=== PATIENT | female | born 1970 | race Caucasian/White ===

== ENCOUNTER 2022-11-22 20:29 | Emergency (ER) | payer OTHER, SELFPAY ==
[2022-11-22 20:38] VITALS: BP 168/66; PULSE 105; RESP 18; TEMP 37.9; O2SAT 99; BMI 33.5
--- NOTE | 2022-11-22 20:52 | ED_ITS ---
HPI - General Adult General Chief complaint: Urogenital Problems, Female Stated complaint: PID Infection Time Seen by Provider: 11/22/22 20:40 History of Present Illness HPI narrative: This 52-year-old female comes in reporting lower abdominal pain that began yesterday. She states that she had symptoms like this before almost 3 years ago when she was admitted to the hospital and had to have an abscess drained in her lower abdomen. She does not report any fever or dysuria symptoms. She states that she came in much sooner this time and feels much better than what she went through V4 but is concerned that something is recurrent. Related Data Home Medications Medication Instructions Recorded Confirmed buspirone 15 mg tablet 15 mg PO 3XD 11/22/22 11/22/22 escitalopram oxalate 20 mg tablet 20 mg PO DAILY 11/22/22 11/22/22 levothyroxine 88 mcg tablet 88 mcg PO DAILY 11/22/22 11/22/22 metformin 500 mg tablet,extended 500 mg PO QPM 11/22/22 11/22/22 release 24 hr pregabalin 150 mg capsule 150 mg PO BID 11/22/22 11/22/22 rosuvastatin 5 mg tablet 5 mg PO DAILY 11/22/22 11/22/22 Previous Rx's Medication Instructions Recorded levofloxacin 500 mg tablet 500 mg PO DAILY 10 days #10 tabs 11/22/22 Allergies Allergy/AdvReac Type Severity Reaction Status Date / Time Sulfa (Sulfonamide Allergy Mild Hives Verified 11/22/22 20:42 Antibiotics) codeine AdvReac Mild Nausea/Vomi Verified 11/22/22 20:42 ting Review of Systems Status of ROS: Reports: 10 or more systems reviewed and unremarkable except as noted in History and below Narrative: Constitutional: No fevers, no weight gain or loss. Generalized malaise. Eyes: No discharge. No vision changes. HENT: No congestion, no sore throat, no ear pain. Cardiovascular: No chest pain, no palpitations. Respiratory: No shortness of breath, no wheezes, no cough. Gastrointestinal: No vomiting, no diarrhea. Lower abdominal pain. Genitourinary: No dysuria, no hematuria. Musculoskeletal: Normal range of motion. Skin: No rashes, no pruritis. Neurological: No dizziness, weakness, sensory change, speech change. Endo/Heme/Allergies: No bruising or bleeding. No polydipsia. Pysch: no suicidality, no anxiety, no insomnia. All other systems reviewed and are negative. Exam Narrative: Exam Narrative: Constitutional: Well-developed, well-nourished, no acute distress. HEENT: Normocephalic, atraumatic. Neck: Normal range of motion. Nontender. Supple. Heart: Regular. No murmurs. Normal rate. Intact distal pulses. Lungs: Clear to auscultation. No chest discomfort. No wheezes, rhonchi, or rales. Abdomen: Normal bowel sounds. Tenderness in the lower abdomen with mild rebound tenderness. Genitalia: Deferred. Back: No midline tenderness. Normal range of motion. Extremities: Normal range of motion. No injury. Skin: Intact. No rash. Warm. No erythema or pallor. Neurologic: No altered sensation. No weakness. Alert and oriented. Psychiatric: No suicidality. No anxiety or depression. No insomnia. Nursing notes and vitals signs are reviewed. Const: Vital Signs, click to edit/add: Vital Signs - 24 hr 11/22/22 20:38 Temperature 100.2 F H Pulse Rate [Right Pulse Oximeter] 105 H Respiratory Rate 18 Blood Pressure [Ri ght Upper Arm] 168/66 H Pulse Oximetry 99 Oxygen Delivery Me thod Room Air Course Vital Signs Vital signs: Initial Vital Signs Temperature 100.2 F H 11/22/22 20:38 Temperature Source Oral 11/22/22 20:38 Pulse Rate 105 H 11/22/22 20:38 Respiratory Rate 18 11/22/22 20:38 Blood Pressure 168/66 H 11/22/22 20:38 Blood Pressure Mean 100 11/22/22 20:38 Blood Pressure Position Sitting 11/22/22 20:38 Pulse Oximetry 99 11/22/22 20:38 Oxygen Delivery Method Room Air 11/22/22 20:38 Vital Signs Temperature 100.2 F H 11/22/22 20:38 Pulse Rate 105 H 11/22/22 20:38 Respiratory Rate 18 11/22/22 20:38 Blood Pressure 168/66 H 11/22/22 20:38 Pulse Oximetry 99 11/22/22 20:38 Oxygen Delivery Method Room Air 11/22/22 20:38 Temperature 100.2 F H 11/22/22 20:38 Pulse Rate 105 H 11/22/22 20:38 Respiratory Rate 18 11/22/22 20:38 Blood Pressure 168/66 H 11/22/22 20:38 Pulse Oximetry 99 11/22/22 20:38 Oxygen Delivery Method Room Air 11/22/22 20:38 Medical Decision Making MDM Narrative Medical decision making narrative: This patient comes in with lower abdominal pain. She has slight tachycardia and has a borderline fever. I recommended IV, labs, and CT imaging to rule out or figure out important causes of these symptoms. The patient began to be tearful and stated that she did not have good insurance and was very concerned about the expense of this kind of workup. She states that she felt much worse in her previous episode of abdominal pain 3 years ago and put off things for several days before coming in. She was hoping to receive an antibiotic. I did lay out some options and reiterated my a preference to do a thorough workup. The pa madelin declined this but did receive an IM injection of Rocephin and an oral dose of Levaquin. Labs are acquired. The patient knows to return if symptoms are worsening. If lab results are indicating a change of plans the patient will comply Discharge Plan Discharge Clinical Impression: Abdominal pain Patient Disposition: Home w/ Parent or Adult Condition: Unchanged Additional Instructions: Take medication as prescribed. Follow up with MD. Return if symptoms are not improving or worsening. Prescriptions: New levofloxacin 500 mg tablet 500 mg PO DAILY 10 Days Qty: 10 0RF No Action rosuvastatin 5 mg tablet 5 mg PO DAILY buspirone 15 mg tablet 15 mg PO 3XD levothyroxine 88 mcg tablet 88 mcg PO DAILY metformin 500 mg tablet extended release 24 hr 500 mg PO QPM escitalopram oxalate 20 mg tablet 20 mg PO DAILY pregabalin 150 mg capsule 150 mg PO BID Follow Up/Referrals: Kamala Soto DO [Primary Care Provider] - Stand Alone Forms: [employer] Info Instructions
[2022-11-22 21:14] LABS: Lactate* 1.5 mmol/L (0.5-1.9)
[2022-11-22 21:17] LABS: Basophils Absolute Auto 0.02 K/uL (0.00-0.30); Basophils Percent Auto 0.2 % (0.0-3.0); Eosinophils Absolute Auto 0.01 K/uL (0.00-0.50); Eosinophils Percent Auto 0.1 % (0.0-7.0); Hematocrit 35.9 % (33.0-51.0); Hemoglobin* 11.8 gm/dL (12.0-16.0); Immature Granulocytes Abs Auto 0.01 K/uL (0.00-0.30); Immature Granulocytes Pct Auto 0.1 %; Lymphocytes Percent Auto 7.9 % (20-44); Mean Corpuscular HGB Conc 33 gm/dL (32-36); Mean Corpuscular Hemoglobin 30 pg (26-34); Mean Corpuscular Volume 90 fL (80-100); Monocytes Percent Auto 2.3 % (0.0-11.0); Neutrophils Percent Auto 89.4 % (42.0-72.0); Platelet Count* 195 K/uL (140-440); RDW Coefficient of Variation % 13.4 % (11.5-15.5); Red Blood Count 3.97 m/uL (4.00-5.20); White Blood Count* 9.22 K/uL (4.50-11.00)
[2022-11-22] MEDS: LIDOCAINE 1% 5 ml (pf) 5 ML VIAL 2.1 ML IM (21:22)
[2022-11-22] MEDS: cefTRIAXone 1 GM VIAL IM (21:22)
[2022-11-22] MEDS: levoFLOXacin 500 MG TABLET PO (21:22)
[2022-11-22 21:24] LABS: Slide Review Reflex No
[2022-11-22 21:32] LABS: Chloride* 101 mmol/L (96-114); Sodium* 133 mmol/L (135-149)
[2022-11-22 21:33] LABS: Potassium* 3.5 mmol/L (3.6-5.1)
[2022-11-22 21:35] LABS: Carbon Dioxide* 24 mmol/L (20-32); Creatinine* 0.7 mg/dL (0.5-1.5); Est. Creatinine Clearance* 80.26; Estimated Glomerular Filt Rate 103 ml/min
[2022-11-22 21:36] LABS: Blood Urea Nitrogen* 6 mg/dL (7-30); Calcium* 8.6 mg/dL (8.4-10.6); Glucose* 196 mg/dL (60-115)
== END 2022-11-22 21:32 | disposition home or self-care (01) ==
LOC: ED 21:13
PROVIDERS: Emergency Provider Emergency Medicine Emergency Medical Services; PCP Family Medicine
DX: R10.9 Unspecified abdominal pain (principal)
CPT/HCPCS: 36415; 80048; 83605; 85025; 87040; 87186; 96372; 99284; A9270; J0696

== ENCOUNTER 2022-11-24 01:28 | Inpatient (IN) | payer OTHER, SELFPAY ==
[2022-11-24] VITALS (20 sets, daily range): BP systolic 96–126; BP diastolic 57–75; PULSE 73–102; RESP 12–20; TEMP 37.1–39.2; O2SAT 93–98; BMI 33.5; BMI 33.1
--- NOTE | 2022-11-24 02:06 | CRLHL7_ITS ---
For Patients: As a result of the Cures Act, medical imaging exams and procedure reports are released immediately into your electronic medical record. You may view this report before your referring provider. If you have questions, please contact your health care provider. INDICATION: Streptococcal bacteremia with dental caries TECHNIQUE: CT lower face without contrast. COMPARISON: None FINDINGS: Visualized osseous structures demonstrate no acute fracture, subluxation, or bony erosion. No periapical lucency. No soft tissue abscess or gas. Visualized paranasal sinuses are normally aerated. No adenopathy. IMPRESSION: No sign of acute abnormality. Please note that all CT scans at this facility use dose modulation, iterative reconstruction, and/or weight-based dosing when appropriate to reduce radiation dose to as low as reasonably achievable. Dictated by Cherise Pierre MD @ 11/24/2022 3:09:23 AM (Electronically Signed)
--- NOTE | 2022-11-24 02:06 | CRLHL7_ITS ---
For Patients: As a result of the Cures Act, medical imaging exams and procedure reports are released immediately into your electronic medical record. You may view this report before your referring provider. If you have questions, please contact your health care provider. INDICATION: Bacteremia, history of right adnexal abscess TECHNIQUE: CT abdomen and pelvis acquired with 95 cc Isovue 370 IV contrast. COMPARISON: April 11, 2020 FINDINGS: Lower chest: Unremarkable. Liver: Unremarkable. Spleen: Unremarkable. Pancreas: Unremarkable. Gallbladder and bile ducts: Unremarkable. Adrenal glands: Unremarkable. Kidneys: Mild right hydronephrosis and hydroureter. No collecting system stone. GI tract: Unremarkable. Appendix is normal. Vascular structures: Unremarkable. Lymph nodes: Unremarkable. Miscellaneous: Unremarkable. No free air or significant free fluid. Pelvic Organs: Nabothian cysts on the uterine cervix. Multiloculated mass in the right adnexa measuring 4.3 x 5.6 x 6.6 cm. This mass has a partially tubular configuration. Minimal surrounding fat stranding. Physiologic cysts on the left ovary. Bones: Unremarkable for age. IMPRESSION: Greater than 6 cm multiloculated mass in the right adnexa. This may represent a tubo-ovarian abscess. The appearance is similar compared to April 11, 2020. Recommend pelvic ultrasound for further evaluation. Mild right hydronephrosis and hydroureter likely due to extrinsic compression from the mass in the right adnexa. Please note that all CT scans at this facility use dose modulation, iterative reconstruction, and/or weight-based dosing when appropriate to reduce radiation dose to as low as reasonably achievable. Dictated by Cherise Pierre MD @ 11/24/2022 3:17:07 AM (Electronically Signed)
--- NOTE | 2022-11-24 02:09 | CRLHL7_ITS ---
For Patients: As a result of the Cures Act, medical imaging exams and procedure reports are released immediately into your electronic medical record. You may view this report before your referring provider. If you have questions, please contact your health care provider. INDICATION: Bacteremia TECHNIQUE: Chest 2 views. COMPARISON: December 29, 2019 FINDINGS: Cardiovascular and mediastinum: Heart size and vasculature are normal in caliber and appearance. Mediastinum is within normal limits. Lungs and pleural spaces: Lungs are clear. No sign of infiltrate or mass. No sign of pleural effusion. No pneumothorax. Bones and soft tissues: No significant findings. IMPRESSION: No sign of acute disease. Dictated by Cherise Pierre MD @ 11/24/2022 3:10:05 AM (Electronically Signed)
--- NOTE | 2022-11-24 02:12 | ED_ITS ---
HPI - General Adult General Chief complaint: Fever Stated complaint: Fever Time Seen by Provider: 11/24/22 01:31 Source: patient Mode of arrival: ambulatory Limitations: no limitations History of Present Illness HPI narrative: 52-year-old female presents to the emergency department after feeling more ill. Visit 2 days ago presenting for nonspecific abdominal symptoms and low-grade fevers. She ultimately had blood work which was overall reassuring, blood cultures were drawn and these came back positive for Gram-positive cocci in change, likely strep yesterday. She was called yesterday morning and advised to come back in for evaluation. She had been given a shot of Rocephin and was started on levofloxacin. She elected to see where things went, concerned about the cost of care with limited insurance right now. She says that she has been feeling more ill, started to have body aches, chills and fever. She knows that she is not as ill as she was when she had full-blown sepsis 3 years ago. She had bacteremia at that time and it was found to be secondary to a tubo-ovarian abscess which was drained up at [facility] by what sounds like Interventional Radiology. I do not have full access to those notes but I can see some records indicating the treatment from our facility. She does not have any localizing symptoms of infection, there is no dysuria, no productive cough, no sore throat or open skin wounds. She does not take any immunosuppressants or anticoagulants. She has no history of heart disease. On specific questioning, she does report some dental caries from grinding her teeth. She admits that these have not been completely addressed. No red or swollen joints, no arthralgias. She has been taking the level floxacillin as prescribed. Past medical history is notable for prior sepsis from tubo-ovarian abscess, hypothyroidism, type 2 diabetes, well controlled. Hyperlipidemia and anxiety disorder. Her home medications are listed in the EMR and I do confirm that these are correct with the exception of the BuSpar dose she says that she takes twice a day rather than 3 times daily as listed. She states that she is a nonsmoker, no recent pertinent travel. ROS is notable for the generalized, abdominal symptoms as described above. ED note from 11/22 reviewed in its entirety as well as hospital details from April 2020. Related Data Home Medications Medication Instructions Recorded Confirmed buspirone 15 mg tablet 15 mg PO 3XD 11/22/22 11/22/22 escitalopram oxalate 20 mg tablet 20 mg PO DAILY 11/22/22 11/22/22 levothyroxine 88 mcg tablet 88 mcg PO DAILY 11/22/22 11/22/22 metformin 500 mg tablet,extended 500 mg PO QPM 11/22/22 11/22/22 release 24 hr pregabalin 150 mg capsule 150 mg PO BID 11/22/22 11/22/22 rosuvastatin 5 mg tablet 5 mg PO DAILY 11/22/22 11/22/22 Previous Rx's Medication Instructions Recorded levofloxacin 500 mg tablet 500 mg PO DAILY 10 days #10 tabs 11/22/22 Allergies Allergy/AdvReac Type Severity Reaction Status Date / Time No Known Drug Allergies Allergy Verified 11/24/22 02:46 Exam Const: Vital Signs, click to edit/add: Vital Signs - 24 hr 11/24/22 01:36 11/24/22 01:43 11/24/22 02:35 Temperature 102.5 F H Pulse Rate 95 Pulse Rate [Pulse Oximeter] 102 H Respiratory Rate 20 Blood Pressure Blood Pressure [Ri ght Upper Arm] 119/75 Pulse Oximetry 93 94 Oxygen Delivery Me thod Room Air 11/24/22 02:45 11/24/22 02:46 11/24/22 02:47 Temperature Pulse Rate 90 89 87 Pulse Rate [Pulse Oximeter] Respiratory Rate Blood Pressure 112/69 Blood Pressure [Ri ght Upper Arm] Pulse Oximetry 94 95 95 Oxygen Delivery Me thod 11/24/22 03:00 11/24/22 03:01 11/24/22 03:15 Temperature Pulse Rate 79 79 81 Pulse Rate [Pulse Oximeter] Respiratory Rate Blood Pressure 104/57 L Blood Pressure [Ri ght Upper Arm] Pulse Oximetry 96 96 95 Oxygen Delivery Me thod 11/24/22 03:16 11/24/22 03:30 11/24/22 03:31 Temperature Pulse Rate 78 93 82 Pulse Rate [Pulse Oximeter] Respiratory Rate Blood Pressure 112/59 L 114/57 L Blood Pressure [Ri ght Upper Arm] Pulse Oximetry 95 95 94 Oxygen Delivery Me thod 11/24/22 03:45 11/24/22 03:46 Temperature Pulse Rate 75 75 Pulse Rate [Pulse Oximeter] Respiratory Rate Blood Pressure 107/60 Blood Pressure [Ri ght Upper Arm] Pulse Oximetry 93 94 Oxygen Delivery Me thod Documenting provider has reviewed patient's vital signs: yes Common normals: no apparent distress General appearance: cooperative, comfortable and well kempt Other: Excellent historian. Cooperative with exam HENMT: Common normals: normocephalic and head/scalp atraumatic Head and scalp: normocephalic and atraumatic Face and sinus: normal facial exam Other: Dental caries, especially in back teeth. No obvious signs of swollen gums or abscess. Eye: Common normals: EOMs intact bilaterally and conjunctivae normal General eye: normal appearance of both eyes Conjunctiva: conjunctiva(e) normal Neck & C-Spine: Common normals: full ROM and no lymphadenopathy Resp: Common normals: normal respiratory effort, no retractions, no use of accessory muscles and clear to auscultation bilaterally Effort & inspection: able to speak in complete sentences Auscultation: clear to auscultation bilaterally Cardio: Common normals: regular rate, regular rhythm, S1 normal heart sound, S2 normal heart sound and no murmurs Rate: regular rate Rhythm: regular rhythm Heart sounds: S1 normal and S2 normal GI: Common normals: Normal to inspection, nondistended, normoactive bowel sounds present, soft to palpation, non-tender, no hepatosplenomegaly and no masses Palpation: soft and no hepatosplenomegaly Extremity: Common normals: normal to inspection, full ROM, normal capillary refill and no pedal edema Neuro: Speech: speech normal Gait (neuro): normal gait Motor exam: strength 5/5 throughout, no tremor noted and no movement abnormalities noted Psych: Appearance: well kempt Attitude: engaged Activity/motor behavior: appropriate eye contact Insight: insight good Judgement: judgment good Skin: Common normals: no rashes or lesions noted General skin exam: no rashes or lesions noted Course Course Hospital Course: To positive blood cultures, suspicious for strep bacteria. Counseled patient that without a skin wound, we should consider dental source. She was having some vague abdominal symptoms a couple of days ago, I would recommend that we re-evaluate the pelvic organs to look for tubo-ovarian abscess. We will repeat the blood cultures, hopefully these will be negative today as she has already started a single dose of Rocephin and level floxacillin. I do recommend that she be admitted for IV antibiotics and further workup. Await CT findings. Basic blood work will also be obtained. Will restart Rocephin while we await findings once blood cultures have been drawn. Reevaluation(s) Time of Reevaluation #1: 03:37 Reevaluation #1: Reviewed all findings with patient. Spoke with Gynecology, Dr. Hall. She recommends NPO, hospitalization, IV antibiotics. May require hysterectomy. Patient will consult in the morning and give further recommendations. I have already given Rocephin which will have good Gram-positive and Gram-negative activity, will add doxycycline. P.r.n. Tylenol ordered for fever. Hospitalist will order maintenance fluids. Hospitalist accepts admission with Dr. Hall consult thing. All questions answered from patient prior to transfer to the medical floor. Vital Signs Vital signs: Initial Vital Signs Temperature Source Temporal Artery Scan 11/24/22 01:36 Pulse Rate 102 H 11/24/22 01:36 Respiratory Rate 20 11/24/22 01:36 Blood Pressure 119/75 11/24/22 01:36 Blood Pressure Mean 89 11/24/22 01:36 Blood Pressure Position Sitting 11/24/22 01:36 Pulse Oximetry 93 11/24/22 01:36 Oxygen Delivery Method Room Air 11/24/22 01:36 Vital Signs Pulse Rate 102 H 11/24/22 01:36 Respiratory Rate 20 11/24/22 01:36 Blood Pressure 119/75 11/24/22 01:36 Pulse Oximetry 93 11/24/22 01:36 Oxygen Delivery Method Room Air 11/24/22 01:36 Temperature 102.5 F H 11/24/22 01:43 Pulse Rate 75 11/24/22 03:46 Respiratory Rate 20 11/24/22 01:36 Blood Pressure 107/60 11/24/22 03:46 Pulse Oximetry 94 11/24/22 03:46 Oxygen Delivery Method Room Air 11/24/22 01:36 Medical Decision Making MDM Narrative Medical decision making narrative: Differential diagnosis including tubo-ovarian abscess, diverticulitis, dental a bscess, pneumonia, sepsis, cellulitis, skin wound, among others. Dental verses pelvic etiology most likely based on history, will start with this workup. CT showing tubo-ovarian abscess, consult with Gynecology, IV antibiotics started for bacteremia. Admitted to hospital. Lab Data Lab results reviewed: Yes I reviewed the patient's lab results Lab results narrative: Markedly elevated CRP. Labs: Lab Results 11/24/22 11/24/22 Range/Units 01:54 02:20 WBC 7.36 (4.50-11.00) K/uL RBC 3.78 L (4.00-5.20) m/uL Hgb 11.5 L (12.0-16.0) gm/dL Hct 34.3 (33.0-51.0) % MCV 91 (80-100) fL MCH 30 (26-34) pg MCHC 34 (32-36) gm/dL RDW Coeff of Sanjeev 13.5 (11.5-15.5) % Plt Count 186 (140-440) K/uL Neut % (Auto) 82.0 H (42.0-72.0) % Lymph % (Auto) 9.5 L (20-44) % Charles % (Auto) 6.8 (0.0-11.0) % Eos % (Auto) 0.4 (0.0-7.0) % Baso % (Auto) 0.3 (0.0-3.0) % Neut # (Auto) 6.00 (1.7-7.0) K/uL Lymph # (Auto) 0.70 L (0.90-2.90) K/uL Charles # (Auto) 0.50 (0.00-0.90) K/UL Eos # (Auto) 0.03 (0.00-0.50) K/uL Baso # (Auto) 0.02 (0.00-0.30) K/uL Sodium 134 L (135-149) mmol/L Potassium 3.5 L (3.6-5.1) mmol/L Chloride 101 (96-114) mmol/L Carbon Dioxide 26 (20-32) mmol/L BUN 8 (7-30) mg/dL Creatinine 0.8 (0.5-1.5) mg/dL Estimated Creat Clear 70.23 Estimated GFR 88 ml/min Glucose 132 H (60-115) mg/dL Calcium 9.0 (8.4-10.6) mg/dL Total Bilirubin 1.1 (0.1-1.5) mg/dL AST 51 H (12-35) U/L ALT 53 H (4-35) U/L Alkaline Phosphatase 118 (40-150) U/L C-Reactive Protein 18.4 H (0.5-1.0) mg/dL Total Protein 6.9 (6.0-8.3) g/dL Albumin 3.9 (3.3-5.0) g/dL Urine Color Yellow (Yellow) Urine Appearance Clear (Clear) Urine pH 7.0 (5.0-8.5) Ur Specific [place] <= 1.005 (1.000-1.030) Urine Protein Negative (Negative) Urine Glucose (UA) Negative (Negative) Urine Ketones Negative (Negative) Urine Blood Trace-intact A (Negative) Urine Nitrite Negative (Negative) Urine Bilirubin Negative (Negative) Urine Urobilinogen 0.2 (0.2-1.0) Ur Leukocyte Esterase Negative (Negative) Urine RBC 0-2 (0-2) Urine WBC 0-2 (0-5) Ur Squamous Epith Cells Few (None-Few) Urine Bacteria None (None) Imaging Data CT scan - pelvis: Attestation: I have reviewed the pertinent imaging results. My impression: Complex mass, right pelvis Radiologist's impression: IMPRESSION: Greater than 6 cm multiloculated mass in the right adnexa. This may represent a tubo-ovarian abscess. The appearance is similar compared to April 11, 2020. Recommend pelvic ultrasound for further evaluation. Mild right hydronephrosis and hydroureter likely due to extrinsic compression from the mass in the right adnexa. Chest x-ray: Attestation: I have reviewed the pertinent imaging results. My impression: Normal Radiologist's impression: IMPRESSION: No sign of acute disease. CT facial: Attestation: I have reviewed the pertinent imaging results. My impression: Normal Radiologist's impression: IMPRESSION: No sign of acute abnormality. Discharge Plan Discharge Clinical Impression: Right tubo-ovarian abscess, Bacteremia Patient Disposition: Admitted As Inpatient
[2022-11-24 02:18] LABS: Appearance Urine Clear (Clear); Bilirubin Urine Negative (Negative); Blood Urine Trace-intact (Negative); Color Urine Yellow (Yellow); Glucose Urine Negative (Negative); Ketones Urine Negative (Negative); Leukocyte Esterase Urine Negative (Negative); Nitrite Urine Negative (Negative); Protein Urine Negative (Negative); Specific Gravity Urine <= 1.005 (1.000-1.030); Urobilinogen Urine 0.2 (0.2-1.0)
[2022-11-24] MEDS: cefTRIAXone 1 GM in 0.9 % SODIUM CHLORIDE Mini-bag 100 ML IVPB (02:42)
[2022-11-24 02:44] LABS: Basophils Absolute Auto 0.02 K/uL (0.00-0.30); Basophils Percent Auto 0.3 % (0.0-3.0); Eosinophils Absolute Auto 0.03 K/uL (0.00-0.50); Eosinophils Percent Auto 0.4 % (0.0-7.0); Hematocrit 34.3 % (33.0-51.0); Hemoglobin* 11.5 gm/dL (12.0-16.0); Immature Granulocytes Abs Auto 0.07 K/uL (0.00-0.30); Lymphocytes Percent Auto 9.5 % (20-44); Mean Corpuscular HGB Conc 34 gm/dL (32-36); Mean Corpuscular Hemoglobin 30 pg (26-34); Mean Corpuscular Volume 91 fL (80-100); Monocytes Percent Auto 6.8 % (0.0-11.0); Platelet Count* 186 K/uL (140-440); RDW Coefficient of Variation % 13.5 % (11.5-15.5); Red Blood Count 3.78 m/uL (4.00-5.20); White Blood Count* 7.36 K/uL (4.50-11.00)
[2022-11-24 02:50] LABS: RBC Urine 0-2 (0-2); Squamous Epithelial Cell Urine Few (None-Few); WBC Urine 0-2 (0-5)
[2022-11-24 02:50] LABS: Slide Review Reflex No
[2022-11-24 02:56] LABS: Albumin* 3.9 g/dL (3.3-5.0); Chloride* 101 mmol/L (96-114); Sodium* 134 mmol/L (135-149)
[2022-11-24 02:57] LABS: Potassium* 3.5 mmol/L (3.6-5.1)
[2022-11-24 02:59] LABS: Alanine Aminotransferase* 53 U/L (4-35); Alkaline Phosphatase* 118 U/L (40-150); Aspartate Amino Transferase* 51 U/L (12-35); Bilirubin Total* 1.1 mg/dL (0.1-1.5); Blood Urea Nitrogen* 8 mg/dL (7-30); Carbon Dioxide* 26 mmol/L (20-32); Creatinine* 0.8 mg/dL (0.5-1.5); Est. Creatinine Clearance* 70.23; Estimated Glomerular Filt Rate 88 ml/min; Glucose* 132 mg/dL (60-115); Total Protein* 6.9 g/dL (6.0-8.3)
[2022-11-24 03:13] LABS: C Reactive Protein* 18.4 mg/dL (0.5-1.0)
--- NOTE | 2022-11-24 04:09 | ED.NURSE ---
nurse to nurse report given to Hiral, Patient will be going to room 260.
[2022-11-24] MEDS: DOXYCYCLINE HYCLATE 100 MG in 0.9 % SODIUM CHLORIDE Mini-bag 100 ML IVPB ×2 (04:16→17:50)
--- NOTE | 2022-11-24 05:03 | PM.IMCN1 ---
Date of Consult Consult date: 11/24/22 Primary Care Provider: Kamala Soto DO Consult Narrative Narrative: Wesly Suazo Hospitalist CONSULTATION NOTE: eHospitalist was contacted by Dr. Costa with request of consultation for admission: Reason for consult: Bacteremia with tubo-ovarian abscess HPI: This is a 52-year-old female who presents to the hospital due to recurrent fevers. Patient seen in the ER couple days ago for evaluation due to feeling like she did not about 3 years ago when she had a tubo-ovarian abscess that needed to be drained eventually. She was notified of blood cultures being positive today and did come back to the ER to be evaluated again secondary to recurrent fevers and wanting to be ahead of the game compared to her previous experience it sounds like. She tells me she had a IR procedure to have the abscess drained in the past. I am unsure if she had bacteremia at that time however. Patient's laboratory testing today is essentially unremarkable. CT of the abdomen shows a persistent multiloculated mass in the right adnexa. This could represent a tubo-ovarian abscess. Patient's case was discussed with the on-call OB in the ER. Home Medications: Reviewed in EMR. Awaiting full reconciliation Pertinent Medical History: Diabetes mellitus, hypothyroidism, anxiety, hyperlipidemia, depression, fibromyalgia Past surgical History: Pertinent Social History: Non-smoker. Very rare alcohol use Family Hx: Mom and sister with hypothyroidism, dad with hyperlipidemia Exam (performed via interactive video with assistance of bedside nurse): Temperature 99.1, pulse 86, respirations 16, blood pressure 112/67, O2 sat 95% on room air General: Alert, cooperative, no acute distress HEENT: EOM intact, head is normocephalic and atraumatic Lungs: Clear to auscultation bilaterally without crackle or wheeze CV: Regular rate and rhythm without loud murmur rub or gallop Ext: No gross deformities of the extremities noted Skin: No rashes, bruises or lesions appreciated on gross visualization of exposed skin Neuro: Alert, oriented x 3. CN III -VII, XI, XII grossly intact, moves all extremities without any significant focal deficit appreciated Assessment: Strep bacteremia unspecified Right adnexal mass with possible tubo-ovarian abscess Diabetes mellitus Hyperlipidemia Anxiety Hypothyroidism Depression Plan: -Treat for possible intra-abdominal infection/abscess with ceftriaxone and Flagyl. Doxy could be continued if desired -Question whether these are 2 unrelated things and the strep bacteremia could be separate from a persistent right adnexal mass versus abscess -Suggest OB consult to help delineate this with ultrasound potentially today -With strep bacteremia, likely would recommend an echocardiogram for complete evaluation and source control -Resume home medications once reconciled Thank you for including Wesly Suazo Hospitalist in the patients care. This service is available for further assistance as requested by your care team by calling [phone]. Meds Home Medications and Allergies Home Medications Medication Instructions Recorded Confirmed Type buspirone 15 mg tablet 15 mg PO 3XD 11/22/22 11/22/22 History escitalopram oxalate 20 mg tablet 20 mg PO DAILY 11/22/22 11/22/22 History levothyroxine 88 mcg tablet 88 mcg PO DAILY 11/22/22 11/22/22 History metformin 500 mg tablet,extended 500 mg PO QPM 11/22/22 11/22/22 History release 24 hr pregabalin 150 mg capsule 150 mg PO BID 11/22/22 11/22/22 History rosuvastatin 5 mg tablet 5 mg PO DAILY 11/22/22 11/22/22 History Allergies Allergy/AdvReac Type Severity Reaction Status Date / Time No Known Drug Allergies Allergy Verified 11/24/22 02:46 Exam Const: Vital Signs, click to edit/add: Vital Signs - 24 hr 11/24/22 01:36 11/24/22 01:43 11/24/22 02:35 Temperature 102.5 F H Pulse Rate 95 Pulse Rate [Pulse Oximeter] 102 H Respiratory Rate 20 Blood Pressure Blood Pressure [Le ft Arm] Blood Pressure [Ri ght Upper Arm] 119/75 Pulse Oximetry 93 94 Oxygen Delivery Me thod Room Air 11/24/22 02:45 11/24/22 02:46 11/24/22 02:47 Temperature Pulse Rate 90 89 87 Pulse Rate [Pulse Oximeter] Respiratory Rate Blood Pressure 112/69 Blood Pressure [Le ft Arm] Blood Pressure [Ri ght Upper Arm] Pulse Oximetry 94 95 95 Oxygen Delivery Me thod 11/24/22 03:00 11/24/22 03:01 11/24/22 03:15 Temperature Pulse Rate 79 79 81 Pulse Rate [Pulse Oximeter] Respiratory Rate Blood Pressure 104/57 L Blood Pressure [Le ft Arm] Blood Pressure [Ri ght Upper Arm] Pulse Oximetry 96 96 95 Oxygen Delivery Me thod 11/24/22 03:16 11/24/22 03:30 11/24/22 03:31 Temperature Pulse Rate 78 93 82 Pulse Rate [Pulse Oximeter] Respiratory Rate Blood Pressure 112/59 L 114/57 L Blood Pressure [Le ft Arm] Blood Pressure [Ri ght Upper Arm] Pulse Oximetry 95 95 94 Oxygen Delivery Me thod 11/24/22 03:45 11/24/22 03:46 11/24/22 04:44 Temperature 99.1 F Pulse Rate 75 75 Pulse Rate [Pulse Oximeter] 86 Respiratory Rate 16 Blood Pressure 107/60 Blood Pressure [Le ft Arm] 112/67 Blood Pressure [Ri ght Upper Arm] Pulse Oximetry 93 94 95 Oxygen Delivery Me thod Room Air Labs Labs: Short CBC 11/24/22 Range/Units 02:20 WBC 7.36 (4.50-11.00) K/uL Hgb 11.5 L (12.0-16.0) gm/dL Hct 34.3 (33.0-51.0) % Plt Count 186 (140-440) K/uL BMP 11/24/22 02:20 Sodium 134 L Potassium 3.5 L Chloride 101 Carbon Dioxide 26 BUN 8 Creatinine 0.8 Glucose 132 H Calcium 9.0 Liver Function 11/24/22 Range/Units 02:20 Total Bilirubin 1.1 (0.1-1.5) mg/dL AST 51 H (12-35) U/L ALT 53 H (4-35) U/L Alkaline Phosphatase 118 (40-150) U/L Albumin 3.9 (3.3-5.0) g/dL Urine 11/24/22 Range/Units 01:54 Urine Color Yellow (Yellow) Urine Appearance Clear (Clear) Urine pH 7.0 (5.0-8.5) Ur Specific [place] <= 1.005 (1.000-1.030) Urine Protein Negative (Negative) Urine Glucose (UA) Negative (Negative)
[2022-11-24] MEDS: metroNIDAZOLE 500 MG/100 ML PIGGYBACK 100 MG IVPB ×2 (05:38→15:01)
--- NOTE | 2022-11-24 06:55 | PC.NURSE ---
Arrived to floor around 0430. Pt A&O. VVS. Complains of 4/10 adb pain but declined any PRN pain medication. Denies headache, dizziness, and SOB. Bowel sounds active. Pt up at jean. Pt resting comfortably in bed
[2022-11-24 08:43] LABS: Gamma Glutamyl Transpeptidase* 225 U/L (8-55)
[2022-11-24 08:45] LABS: HCG Qualitative Serum* Negative (Negative)
[2022-11-24 08:46] LABS: Hemoglobin A1C* 5.45 % (0-5.6)
[2022-11-24 08:49] LABS: HCO3 VBG 26 mmol/L (21-28); Lactate* 0.6 mmol/L (0.5-1.9); PCO2 VBG 43 mmHG (40-50); PO2 VBG 27.2 mmHG (25-47); pH VBG 7.388 (7.32-7.43)
[2022-11-24] MEDS: BUSPIRONE 10 MG TABLET 22.5 MG PO (09:12)
[2022-11-24] MEDS: LEVOTHYROXINE 88 MCG TABLET PO (09:13)
[2022-11-24] MEDS: SODIUM CHLORIDE 0.9 % (FLUSH) 10 ML SYRINGE 5 ML IVF (09:13)
[2022-11-24] MEDS: ESCITALOPRAM 10 MG TABLET 20 MG PO (09:13)
[2022-11-24] MEDS: PREGABALIN 50 MG CAPSULE 150 MG PO (09:33)
--- NOTE | 2022-11-24 10:15 | CRLHL7_ITS ---
For Patients: As a result of the Cures Act, medical imaging exams and procedure reports are released immediately into your electronic medical record. You may view this report before your referring provider. If you have questions, please contact your health care provider. INDICATION: BACTEREMIA COMPARISON: CT 11/24/2022, 04/11/2020 TECHNIQUE: 2D jones scale and color Doppler images were acquired of the pelvis using a transabdominal approach. FINDINGS: Complex multicystic right adnexal mass is present, corresponding to the most recent CT. Small cystic changes are also present associated with the left ovary. The uterus is heterogeneous with small intramural fibroids. Endometrium measures approximately 7 millimeters. Discernible right ovarian tissue not appreciated. Left ovary measures 3.3 x 1.8 x 2.4 cm. Uterus measures 11.4 x 7.0 x 7.0 cm. No excess pelvic free fluid. IMPRESSION: Complex cystic right ovarian mass, corresponding with the CT, likely representing recurrent tubo-ovarian abscess in the appropriate clinical setting. This measures approximately 8 x 5 x 6 cm. Dictated by Andrew Murphy MD @ 11/24/2022 10:59:48 AM (Electronically Signed)
--- NOTE | 2022-11-24 12:20 | P.IMHP_ITS ---
Hospitalist- H&P: HPI History of Present Illness Date Seen: 11/24/22 Chief complaint: Fever Narrative: ADMISSION HISTORY AND PHYSICAL - HOSPITALIST Chief Complaint: I am feeling worse despite antibiotics. I know I am bacteremic. HPI: 52-year-old Monica presents to our emergency room with worsening body aches, fever and weakness. Patient was seen on 11/22/2022 in our emergency room. She had presented with abdominal pain. She said it felt similar to her TOA diagnosed in March of 2020. At that time she left our hospital (routine discharge with a 2 week plan for follow-up with Dr. Hall) but then presented to the [facility] where she was evaluated and had gynecology see her there. They continued her oral antibiotics and ultimately in April of 2020 she had her abscess drained by Interventional Radiology at [facility]. One day prior to admission, 11/23/2022, the ER was notified of positive blood cultures from her visit on the . She was contacted and told to start Levaquin. Given precautions as well. She then presented early on the morning of the with reoccurring fever and chills. ER COURSE: Repeat blood cultures IV ceftriaxone, IV doxy and oral Flagyl started Repeat labs Admission CODE STATUS: FULL CODE EMERGENCY CONTACT PLAN: WYATT MARTINEZ [phone], I've updated the [facility], medications and allergies in the [facility] tabs. INVESTIGATIONS: LABS/MICRO/ECG/IMAGING Blood pressure 101/66, pulse 82, respirations 12, 98.8? F 95% on room air. T-max 102.5? F about 0200 this morning CBC is reflecting a normal white blood cell count. Mild chronic anemia at 11.5 Normal platelets. PH this morning is normal. PCO2 is normal. Labs at admission showed a very mild hyponatremia and hypokalemia. Normal renal function. Blood glucose 132. A1c 5.5. Lactate is normal. GGT 255, AST ALT 51 and 53 alk-phos is normal - I can not find any previous hist ory of elevated LFTs. 2014 was the last check in the [facility] - normal here in 2019. CRP 18 HCG negative I reviewed the abdominal pelvic CT, face CT and chest x-ray done and admission. Blood cultures from the are growing Gram-positive cocci in chains. I am still awaiting ID and sensitivities. REVIEW OF SYSTEMS: 12-point ROS completed with patient and negative unless otherwise stated in HPI or below. PHYSICAL EXAM: CODE STATUS: FULL CODE CONSTITUTIONAL: Conversive, good historian. A/O. Knows setting and context. VITAL SIGNS: see record. HEENT: Normocephalic, atraumatic. PERRL, EOMI, conjunctivae pink, no scleral icterus. Ears and nose externally normal. Pharynx normal. NECK: No JVD. No carotid bruit, no thyromegaly, no adenopathy. CHEST: Clear to auscultation bilaterally HEART: S1 and S2 normal. No harsh murmurs. Edema MUSCULOSKELETAL: No gross joint deformity or swelling. NEURO: Cranial nerves intact. Grossly intact. No asymmetric findings. SKIN: No rashes, petechiae, concerning changes PSYCHIATRIC: Euthymic. ADMIT TO MEDSURG: FLOOR CARE DVT: Lovenox GI: PO intake Time spent: 70 minutes examining patient, conferring with family and patient, care staff, developing care plan Monica Martinez is a 52 year old female Complex cystic right ovarian mass, corresponding with the CT, likely representing recurrent tubo-ovarian abscess in the appropriate clinical setting. This measures approximately 8 x 5 x 6 cm. [facility] Medical History (Updated 11/24/22 @ 13:02 by Kya Painting MD) Factor 5 Leiden mutation, heterozygous ?D68.51 - Activated protein C resistance (ICD-10) Rosacea ?L71.9 - Rosacea, unspecified (ICD-10) Type 2 diabetes mellitus ?E11.9 - Type 2 diabetes mellitus without complications (ICD-10) Major depressive disorder ?F32.9 - Major depressive disorder, single episode, unspecified (ICD-10) Fibromyalgia ?M79.7 - Fibromyalgia (ICD-10) History of PID ?Z87.42 - Personal history of other diseases of the female genital tract (ICD-10) Hypothyroidism ?E03.9 - Hypothyroidism, unspecified (ICD-10) Hyperlipidemia ?E78.5 - Hyperlipidemia, unspecified (ICD-10) Surgical History (Updated 11/24/22 @ 12:36 by Kya Painting MD) S/P aspiration of abscess ?Z98.890 - Other specified postprocedural states (ICD-10) H/O dilation and curettage ?Z98.890 - Other specified postprocedural states (ICD-10) Previous section ?Z98.891 - History of uterine scar from previous surgery (ICD-10) Status post ORIF of fracture of ankle ?Z98.890 - Other specified postprocedural states (ICD-10) ?Z87.81 - Personal history of (healed) traumatic fracture (ICD-10) Social History (Updated 11/24/22 @ 12:36 by Kya Painting MD) Narrative: . Nonsmoker. Social alcohol. 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 What is your current living situation: I presently have a place to live Problems where you live: no known problems Problems where you live details: n/a In the past 12 months, utilities in danger of being shut off: no In the past 12 mos, have been you worried that your food would run out before you had money to buy more?: never true In the past 12 mos, the food you bought just didn't last and you didn't have money to buy more?: never true Highest level of school completed/degree received: Bachelor's degree Smoking Status: Never smoker How often do you have a drink containing alcohol: 2-3 times a week How many standard drinks containing alcohol do you have on a typical day: 3 or 4 AUDIT-C Alcohol total score: 4 Non-prescribed substance use: denies use Caffeine: Yes (2 cups of coffee) How often does anyone, including family, friends and others, physically hurt you : How often does anyone, including family, friends and others, insult or talk down to you: How often does anyone, including family, friends and others, threaten you with harm: How often does anyone, including family, friends and others, scream or curse at you: service: No Meds Home Medications and Allergies Home Medications Medication Instructions Recorded Confirmed Type buspirone 15 mg tablet 22.5 mg PO BID 11/22/22 11/24/22 History escitalopram oxalate 20 mg tablet 20 mg PO DAILY 11/22/22 11/24/22 History levothyroxine 88 mcg tablet 88 mcg PO DAILY 11/22/22 11/24/22 History metformin 500 mg tablet,extended 500 mg PO QPM 11/22/22 11/24/22 History release 24 hr pregabalin 150 mg capsule 150 mg PO BID 11/22/22 11/24/22 History rosuvastatin 5 mg tablet 5 mg PO HS 11/22/22 11/24/22 History melatonin 10 mg tablet 10 mg PO HS PRN 11/24/22 11/24/22 History minocycline 100 mg capsule 100 mg PO DAILY PRN 11/24/22 11/24/22 History multivitamin 1 tab PO DAILY 11/24/22 11/24/22 History Allergies Allergy/AdvReac Type Severity Reaction Status Date / Time No Known Drug Allergies Allergy Verified 11/24/22 02:46 Exam Const: Vital Signs, click to edit/add: Vital Signs - 24 hr 11/24/22 01:36 11/24/22 01:43 11/24/22 02:35 Temperature 102.5 F H Pulse Rate 95 Pulse Rate [Pulse Oximeter] 102 H Respiratory Rate 20 Blood Pressure Blood Pressure [Le ft Arm] Blood Pressure [Ri ght Upper Arm] 119/75 Pulse Oximetry 93 94 Oxygen Delivery Me thod Room Air 11/24/22 02:45 11/24/22 02:46 11/24/22 02:47 Temperature Pulse Rate 90 89 87 Pulse Rate [Pulse Oximeter] Respiratory Rate Blood Pressure 112/69 Blood Pressure [Le ft Arm] Blood Pressure [Ri ght Upper Arm] Pulse Oximetry 94 95 95 Oxygen Delivery Me thod 11/24/22 03:00 11/24/22 03:01 11/24/22 03:15 Temperature Pulse Rate 79 79 81 Pulse Rate [Pulse Oximeter] Respiratory Rate Blood Pressure 104/57 L Blood Pressure [Le ft Arm] Blood Pressure [Ri ght Upper Arm] Pulse Oximetry 96 96 95 Oxygen Delivery Me thod 11/24/22 03:16 11/24/22 03:30 11/24/22 03:31 Temperature Pulse Rate 78 93 82 Pulse Rate [Pulse Oximeter] Respiratory Rate Blood Pressure 112/59 L 114/57 L Blood Pressure [Le ft Arm] Blood Pressure [Ri ght Upper Arm] Pulse Oximetry 95 95 94 Oxygen Delivery Me thod 11/24/22 03:45 11/24/22 03:46 11/24/22 04:44 Temperature 99.1 F Pulse Rate 75 75 Pulse Rate [Pulse Oximeter] 86 Respiratory Rate 16 Blood Pressure 107/60 Blood Pressure [Le ft Arm] 112/67 Blood Pressure [Ri ght Upper Arm] Pulse Oximetry 93 94 95 Oxygen Delivery Me thod Room Air 11/24/22 08:34 11/24/22 08:34 Temperature 98.8 F Pulse Rate Pulse Rate [Pulse Oximeter] 82 82 Respiratory Rate 12 12 Blood Pressure Blood Pressure [Le ft Arm] 101/66 Blood Pressure [Ri ght Upper Arm] Pulse Oximetry 95 Oxygen Delivery Me thod Room Air Hospitalist - H&P: Result Labs Labs: Short CBC 11/24/22 Range/Units 02:20 WBC 7.36 (4.50-11.00) K/uL Hgb 11.5 L (12.0-16.0) gm/dL Hct 34.3 (33.0-51.0) % Plt Count 186 (140-440) K/uL BMP 11/24/22 02:20 Sodium 134 L Potassium 3.5 L Chloride 101 Carbon Dioxide 26 BUN 8 Creatinine 0.8 Glucose 132 H Calcium 9.0 Liver Function 11/24/22 Range/Units 02:20 Total Bilirubin 1.1 (0.1-1.5) mg/dL GGT 225 H (8-55) U/L AST 51 H (12-35) U/L ALT 53 H (4-35) U/L Alkaline Phosphatase 118 (40-150) U/L Albumin 3.9 (3.3-5.0) g/dL Urine 11/24/22 Range/Units 01:54 Urine Color Yellow (Yellow) Urine Appearance Clear (Clear) Urine pH 7.0 (5.0-8.5) Ur Specific [place] <= 1.005 (1.000-1.030) Urine Protein Negative (Negative) Urine Glucose (UA) Negative (Negative) Assessment and Plan Assessment and plan (1) Bacteremia: Problem comment: Gram-positive, strep family, growing in both blood cultures from the 12th. New blood cultures obtained. Between these blood culture she was on a g of Rocephin and then Levaquin. This was managed through the ED. currently she is on ceftriaxone, doxycycline and metronidazole. Presumed source of the bacteremia is a TOA. Unlikely to be a strep, keeping the differential for source of infection wide. Face CT ruled out significant abscess formation in her dentition. No obvious skin wounds or picking noted. No history of valve surgery or cardiac issues. Echo ordered. LFTs are elevated which could be related to the bacteremia however a right upper quadrant ultrasound may be indicated. Status: Acute (2) Right tubo-ovarian abscess: Problem comment: Appropriate antibiotics are ongoing ceftriaxone, doxycycline, metronidazole. Dr. Hoover, Gynecology, peripherally is aware of this case. She recommended a pelvic ultrasound and consult order. Status: Acute (3) Transaminitis: Problem comment: Right upper quadrant ultrasound ordered, trend Status: Acute (4) History of PID: Problem comment: Approximately 2017 Status: Acute (5) Fibromyalgia: Problem comment: Takes Lyrica Status: Acute (6) Major depressive disorder: Problem comment: Takes BuSpar and Lexapro Status: Acute (7) Type 2 diabetes mellitus: Problem comment: Managed on oral monotherapy, metformin. achs bedside glucose checks with sliding scale insulin. Status: Acute (8) Factor 5 Leiden mutation, heterozygous: Problem comment: Unclear history. No history of blood clots. Family members with history of blood clots. Status: Acute
--- NOTE | 2022-11-24 16:04 | PM.GYNCN1 ---
VICE PRESIDENT OF OPERATIONS - CN: HPI Data of Consult Time Seen by Provider: 16:04 Date Seen: 11/24/22 Patient: Sagrario Patient Consult date: 11/24/22 Requesting Physician: Kya Painting MD Primary Care Provider: Kamala Soto DO Consult Narrative Reason for consult: other (Right tubo-ovarian abscess with bacteremia) Narrative: Monica Smith is a 52 year old female who was admitted overnight with abdominal pain, body aches, fever, and weakness. She had initially presented to the emergency department on 11/22/2022 with abdominal pain. She described the pain as similar to pain that she had in March of 2020 when she was diagnosed with a right tubo-ovarian abscess. The patient was apparently concerned about the cost of a comprehensive evaluation, so some labs were drawn, which included blood cultures, an examination was performed, and the patient was treated with IM Rocephin and sent out with a prescription for oral Levaquin. Subsequently, she was contacted the next day with positive blood cultures which were growing out Gram-positive cocci in chains and encouraged to start the Levaquin. She presented again to the emergency department with worsening pain, fever, chills, and body aches early in the morning on 11/24/2022. A comprehensive workup was undertaken. Pertinent labs: Normal white blood cell count, mild chronic anemia at 11.5, elevated CRP at 18, negative HCG, ALT 53, AST 51. Imaging was done: CT scan of the abdomen and pelvis showed a multiloculated mass in the right adnexa measuring 4.3 x 5.6 x 6.6 cm, with a partially tubular configuration and minimal surrounding fat stranding. Physiologic cysts were noted on the left ovary. Mild hydronephrosis and hydroureter also noted on the right. A pelvic ultrasound performed late this morning confirmed a complex multi-cystic right adnexal mass measuring approximately 8 x 5 x 6 cm. Uterus was noted to be heterogeneous with small intramural fibroids, endometrial lining thickness 7 mm. Left ovary normal. No excess pelvic free fluid noted. The patient was admitted to the hospitalist service. She was treated with IV ceftriaxone, metronidazole, and doxycycline. Right upper quadrant ultrasound has been ordered and is pending, to further workup the elevated transaminases. A cardiac echocardiogram has also been considered to look for any evidence cardiac valvular disease. The patient still feels achy and tired, and has some abdominal discomfort. She denies vaginal bleeding or unusual vaginal discharge. Her last menstrual period began a month ago. She is still menstruating, though menstruation is becoming somewhat irregular, and she has skipped periods for up to 3 months. She has a previous history of a right tubo-ovarian abscess diagnosed in March 2020. She was treated with parenteral antibiotics, and subsequently in April 2020 this was drained by Interventional Radiology at [place]. At the time of a follow-up evaluation in July [address] Hall at the [facility], she was asymptomatic, and a pelvic ultrasound showed significant decrease in size of the complex right adnexal mass. Short-term follow-up in 6 months was recommended but not completed. OBSTETRIC HISTORY: History of a term delivery of a macrosomic infant. 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 She also has a history of a D&C for miscarriage. FAMILY HISTORY: Mother with endometriosis, status post hysterectomy. Sisters with factor 5 Leiden. Family history of breast cancer on the maternal side. cc:: CC: Lanette Evans MD [facility] Medical History Factor 5 Leiden mutation, heterozygous ?D68.51 - Activated protein C resistance (ICD-10) Rosacea ?L71.9 - Rosacea, unspecified (ICD-10) Type 2 diabetes mellitus ?E11.9 - Type 2 diabetes mellitus without complications (ICD-10) Major depressive disorder ?F32.9 - Major depressive disorder, single episode, unspecified (ICD-10) Fibromyalgia ?M79.7 - Fibromyalgia (ICD-10) History of PID ?Z87.42 - Personal history of other diseases of the female genital tract (ICD-10) Hypothyroidism ?E03.9 - Hypothyroidism, unspecified (ICD-10) Hyperlipidemia ?E78.5 - Hyperlipidemia, unspecified (ICD-10) Surgical History (Updated 11/24/22 @ 16:22 by Linda Hoover MD) S/P aspiration of abscess ?Z98.890 - Other specified postprocedural states (ICD-10) H/O dilation and curettage ?Z98.890 - Other specified postprocedural states (ICD-10) Previous section ?Z98.891 - History of uterine scar from previous surgery (ICD-10) Status post ORIF of fracture of ankle ?Z98.890 - Other specified postprocedural states (ICD-10) ?Z87.81 - Personal history of (healed) traumatic fracture (ICD-10) Family History (Updated 11/24/22 @ 16:23 by Linda Hoover MD) Mother Endometriosis Social History Narrative: . Nonsmoker. Social alcohol. 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 What is your current living situation: I presently have a place to live Problems where you live: no known problems Problems where you live details: n/a In the past 12 months, utilities in danger of being shut off: no In the past 12 mos, have been you worried that your food would run out before you had money to buy more?: never true In the past 12 mos, the food you bought just didn't last and you didn't have money to buy more?: never true Highest level of school completed/degree received: Bachelor's degree Smoking Status: Never smoker How often do you have a drink containing alcohol: 2-3 times a week How many standard drinks containing alcohol do you have on a typical day: 3 or 4 AUDIT-C Alcohol total score: 4 Non-prescribed substance use: denies use Caffeine: Yes (2 cups of coffee) How often does anyone, including family, friends and others, physically hurt you: How often does anyone, including family, friends and others, insult or talk down to you: How often does anyone, including family, friends and others, threaten you with harm: How often does anyone, including family, friends and others, scream or curse at you: service: No Meds Home Medications and Allergies Home Medications Medication Instructions Recorded Confirmed Type buspirone 15 mg tablet 22.5 mg PO BID 11/22/22 11/24/22 History escitalopram oxalate 20 mg tablet 20 mg PO DAILY 11/22/22 11/24/22 History levothyroxine 88 mcg tablet 88 mcg PO DAILY 11/22/22 11/24/22 History metformin 500 mg tablet,extended 500 mg PO QPM 11/22/22 11/24/22 History release 24 hr pregabalin 150 mg capsule 150 mg PO BID 11/22/22 11/24/22 History rosuvastatin 5 mg tablet 5 mg PO HS 11/22/22 11/24/22 History melatonin 10 mg tablet 10 mg PO HS PRN 11/24/22 11/24/22 History minocycline 100 mg capsule 100 mg PO DAILY PRN 11/24/22 11/24/22 History multivitamin 1 tab PO DAILY 11/24/22 11/24/22 History Allergies Allergy/AdvReac Type Severity Reaction Status Date / Time No Known Drug Allergies Allergy Verified 11/24/22 02:46 VICE PRESIDENT OF OPERATIONS - Exam Physical Exam: Vital signs: Temp Pulse Resp BP Pulse Ox O2 Del Method 99.5 F 82 12 96/62 97 Room Air 11/24/22 11:00 11/24/22 14:48 11/24/22 14:48 11/24/22 11:00 11/24/22 11:00 11/24/22 11:00 Constitutional: Constitutional: mild distress Routine Abdominal Exam: Abdominal: Present soft Comments: Tender right lower quadrant VICE PRESIDENT OF OPERATIONS - Results Labs Labs: Short CBC 11/24/22 Range/Units 02:20 WBC 7.36 (4.50-11.00) K/uL Hgb 11.5 L (12.0-16.0) gm/dL Hct 34.3 (33.0-51.0) % Plt Count 186 (140-440) K/uL BMP 11/24/22 02:20 Sodium 134 L Potassium 3.5 L Chloride 101 Carbon Dioxide 26 BUN 8 Creatinine 0.8 Glucose 132 H Calcium 9.0 Liver Function 11/24/22 Range/Units 02:20 Total Bilirubin 1.1 (0.1-1.5) mg/dL GGT 225 H (8-55) U/L AST 51 H (12-35) U/L ALT 53 H (4-35) U/L Alkaline Phosphatase 118 (40-150) U/L Albumin 3.9 (3.3-5.0) g/dL Urine 11/24/22 Range/Units 01:54 Urine Color Yellow (Yellow) Urine Appearance Clear (Clear) Urine pH 7.0 (5.0-8.5) Ur Specific [place] <= 1.005 (1.000-1.030) Urine Protein Negative (Negative) Urine Glucose (UA) Negative (Negative) Assessment and Plan Assessment and plan (1) Right tubo-ovarian abscess: Problem comment: Appropriate antibiotics are ongoing ceftriaxone, doxycycline, metronidazole. Dr. Hoover, Gynecology, peripherally is aware of this case. She recommended a pelvic ultrasound and consult order. Status: Acute (2) Bacteremia: Problem comment: Gram-positive, strep family, growing in both blood cultures from the 12th. New blood cultures obtained. Between these blood culture she was on a g of Rocephin and then Levaquin. This was managed through the ED. currently she is on ceftriaxone, doxycycline and metronidazole. Presumed source of the bacteremia is a TOA. Unlikely to be a strep, keeping the differential for source of infection wide. Face CT ruled out significant abscess formation in her dentition. No obvious skin wounds or picking noted. No history of valve surgery or cardiac issues. Echo ordered. LFTs are elevated which could be related to the bacteremia however a right upper quadrant ultrasound may be indicated. Status: Acute Plan 1. I reviewed the images and the radiologist's report from the 2 imaging studies done today, the CT scan of the abdomen and pelvis and the ultrasound of the abdomen and pelvis. I also reviewed the patient's admission and emergency department notes, as well as her notes from the previous admission in 2019 for a right tubo-ovarian abscess. My impression is that she again has a right tubo-ovarian abscess, now measuring 8 x 5 x 6 cm, as well as bacteremia. This suggests that the tubo-ovarian abscess is ruptured or leaking. I spoke with Dr. Nicole, a gynecologic oncologist with [facility]. She recommended that the patient be transferred to a tertiary medical center such as [place], where a subcutaneous drain can be placed. The patient will need continued parenteral broad-spectrum antibiotics. Once the acute inflammation has down and the patient is no longer septic, she will need definitive surgery, which would include a hysterectomy with bilateral salpingo-oophorectomies, most likely in about 6 weeks. 2. The above information was relayed to the patient. She is tearful because she is concerned about the cost of medical care, but she understands that we are making a recommendation for transfer of care to a higher level hospital because we believe it is in her best interest. 3. I relayed this information to Dr. Painting as well, and she will initiate the transfer. 4. The patient can certainly follow-up in [place] as needed when she has received appropriate medical and surgical care.
[2022-11-24] MEDS: 5 % DEXTROSE/0.9% SOD CHLORIDE 1,000 ML 200 ML IV (16:54)
--- NOTE | 2022-11-24 18:00 | CRLHL7_ITS ---
For Patients: As a result of the Century Cures Act, medical imaging exams and procedure reports are released immediately into your electronic medical record. You may view this report before your referring provider. If you have questions, please contact your health care provider. CLINICAL HISTORY: Transaminitis FINDINGS: The liver is enlarged measuring 19.1 cm. There is a normal appearance of the hepatic IVC and proximal abdominal aorta. There is no evidence of ascites. A 5 millimeter non shadowing adherent stone versus polyp. Gallbladder wall measures 2 millimeters. The common bile duct is of normal size and measures 6 mm in diameter at the level of the cedric hepatis. The pancreas is poorly seen. The right kidney measures 11.3 cm in length. Mild hydronephrosis. IMPRESSION: 1.Wkzz-[id number]-hizcgrts right hydronephrosis. 2. 5 millimeter nonshadowing adherent stone versus polyp 3. Hepatomegaly. Dictated by Halima Romano MD @ 11/24/2022 7:05:39 PM (Electronically Signed)
[2022-11-24] MEDS: ACETAMINOPHEN 325 MG TABLET 650 MG PO (18:29)
--- NOTE | 2022-11-24 22:17 | PC.NURSE ---
Transfered to [facility] at 1831 via [facility]. Report to W per Iris KC.
== END 2022-11-24 18:30 | disposition short-term general hospital (02) | DRG 758 ==
LOC: ED 02:48 → MEDSURG 04:11
PROVIDERS: Family Medicine; Admitting Provider Family Medicine; Emergency Provider Family Medicine; PCP Family Medicine; Visit Provider Family Medicine
DX: N70.03 Acute salpingitis and oophoritis (principal); D68.51 Activated protein C resistance; R78.81 Bacteremia; B96.89 Other specified bacterial agents as the cause of diseases classified elsewhere; E11.9 Type 2 diabetes mellitus without complications; R74.01 Elevation of levels of liver transaminase levels; M79.7 Fibromyalgia; Z79.84 Long term (current) use of oral hypoglycemic drugs; F41.9 Anxiety disorder, unspecified; F32.9 Major depressive disorder, single episode, unspecified; E03.9 Hypothyroidism, unspecified; E78.5 Hyperlipidemia, unspecified
CPT/HCPCS: 36415; 70487; 71046; 74177; 76705; 76856; 80053; 81003; 81015; 82803; 82962; 82977; 83036; 83605; 84703; 85025; 86140; 87040; 99284; 99285; A9270; J0696; J7042; Q9967; S0030

== ENCOUNTER 2022-11-24 18:19 | Outpatient (CLI) | payer OTHER, SELFPAY | END 2022-11-24 18:20 | disposition home or self-care (01) | LOC: AMB 12-03 09:11 | PROVIDERS: PCP Family Medicine; Visit Provider Family Medicine | DX: N70.92 Oophoritis, unspecified (principal) | CPT/HCPCS: A0425; A0428 ==

== ENCOUNTER 2023-01-12 15:51 | Outpatient (CLI) | payer OTHER, SELFPAY ==
--- NOTE | 2023-01-12 16:00 | CRLHL7_ITS ---
For Patients: As a result of the Century Cures Act, medical imaging exams and procedure reports are released immediately into your electronic medical record. You may view this report before your referring provider. If you have questions, please contact your health care provider. INDICATION: Right ovarian abscess COMPARISON: CT 11/24/2022 TECHNIQUE: 2D jones scale and color Doppler images were acquired of the pelvis using a transabdominal and transvaginal approach. FINDINGS: Sonographic images demonstrate a normal size and smooth outer contour of the uterus. Uterus measures 9.1 cm in length by 5.1 cm in AP diameter by 6.3 cm in transverse dimension. The myometrium has a heterogeneous echotexture. The endometrial lining is somewhat ill-defined and measures 5 mm in composite thickness. The right ovary measures 4.1 x 2.9 x 3.3 cm in size and the left ovary measures 2.0 x 1.3 x 2.0 cm. The ovaries demonstrate normal arterial and venous blood flow on color Doppler analysis. The right fallopian tube is dilated. Hypoechoic cyst within the right ovary is noted measuring 2.3 x 1.9 x 2.1 cm. IMPRESSION: Interval removal of right adnexal abscess. Residual right hydrosalpinx and probable hemorrhagic right ovarian cyst. No torsion. Dictated by Andrew Murphy MD @ 01/13/2023 9:05:18 AM (Electronically Signed)
== END 2023-01-12 15:52 | disposition home or self-care (01) ==
LOC: US 15:51
PROVIDERS: PCP Family Medicine; Visit Provider Obstetrics & Gynecology
DX: N70.92 Oophoritis, unspecified (principal)
CPT/HCPCS: 76830

== ENCOUNTER 2023-04-15 04:21 | Inpatient (IN) | payer OTHER, SELFPAY ==
[2023-04-13 21:00] VITALS: BP 101/66; PULSE 89; RESP 16; TEMP 36.4; O2SAT 91
[2023-04-14] VITALS (42 sets, daily range): BP systolic 71–129; BP diastolic 49–92; PULSE 79–117; RESP 12–16; TEMP 36–36.8; O2SAT 92–99; BMI 33.8
[2023-04-14] MEDS: LACTATED RINGERS 1000 ML 1,000 ML 100 ML IV ×3 (06:30→11:56)
[2023-04-14] MEDS: ETHYL CHLORIDE 1 APPLICATION 1 APPLIC TOPICAL (06:30)
[2023-04-14 07:06] LABS: Ur HCG Qualitative* Negative (Negative)
[2023-04-14 07:08] LABS: Hemoglobin* 13.9 gm/dL (12.0-16.0)
--- NOTE | 2023-04-14 07:28 | W.PM.H&PU ---
History & Physical Update History & Physical Update H&P Reviewed and patient assessed: No changes noted H&P Updates: Preoperative diagnosis: Recurrent tuboovarian abscess in a menopausal woman Planned procedures: Placement of ureteral stents, total laparoscopic hysterectomy, possible total abdominal hysterectomy, cystoscopy Physical exam: General: No acute distress Psych: Alert and oriented x3, full affect HEENT: Normocephalic, atraumatic Heart: Regular rate and rhythm, no murmur rub or gallop Lungs: Clear to auscultation bilaterally Labs: Hb 13.7 Type and screen, creatinine pending
[2023-04-14 07:33] LABS: Creatinine* 0.9 mg/dL (0.5-1.5); Estimated Glomerular Filt Rate 76 ml/min
[2023-04-14] MEDS: CEFAZOLIN 2 GM INJ IVP (07:50)
[2023-04-14] MEDS: BUPIVACAINE 0.25% 30 ML INJECTION (08:51)
--- NOTE | 2023-04-14 09:14 | P.NB_ITS ---
Nerve Block Nerve Block Time Seen by Provider: 07:44 Date Seen: 04/14/23 Type of block requested by surgeon for post-operative analgesia: TAP Side: bilateral Time out performed: Yes Verification of patient name: Yes Verification of date of : Yes Site marking: site marked Name of person performing procedure: Steve Continuous monitoring Was continuous monitoring of O2 sat, B/P, front desk monitor, recorded every 15 minutes?: Yes Procedure Checklist: sterile prep, needles and gloves Ultrasound guided. Images saved: Yes Medications given in 5ml increments after negative aspiration: Marcaine %: 0.25 mL: 30 Needle gauge: 20 and Exparel mL: 10 Patient tolerated procedure well: Yes Additional comments: Needle noted adjacent to nerve Block Charges Block Charge (with Pro Fee): TAP Bilateral Use of Ultrasound Machine for Block: Yes- US Guidance/pain block
--- NOTE | 2023-04-14 09:14 | W.ANESCHARGE ---
Anesthesia Charges Start Date/Time Anesthesia Start Date: 04/14/23 Anesthesia Start Time: 07:40 Stop Date/Time Anesthesia Stop Date: 04/14/23 Anesthesia Stop Time: 12:15
--- NOTE | 2023-04-14 10:42 | PM.GSPRC ---
Operative Note Pre-op diagnosis: Pelvic inflammation in female with associated tubo-ovarian abscess Post-op diagnosis: Same Type of Procedure: Placement of lighted ureteral stents Indications: Patient is a 52-year-old female who was scheduled to undergo a laparoscopic hysterectomy with Dr. Hall. Due to the concern for associated scar tissue I was asked to assist with placement of lighted ureteral stents. Risks and benefits of this portion of procedure were discussed at length with the patient. Risks included, but were not limited to: Bleeding, infection, damage to the ureter requiring additional procedures or transfer to another facility. All questions and concerns were addressed with patient agreeing to proceed. Procedure Description: Patient was intubated and in lithotomy position way entered the operating room. Dr. Hall performed a cystoscopy portion of the procedure, while I proctored placement of the ureteral stents. She initially visualized the left ureteral opening. A wire was easily passed through and a stent placed via Seldinger technique to about 20 cm. The wire was then removed and stent left in place. Attention was then directed to the right ureteral opening. A wire was placed through the opening. Initially there was a little resistance with placement of the stent over the wire. Once it passed the orifice it was able to go into the ureter without any resistance or difficulty. This was also placed at about 20 cm. The wire was then removed and the camera passed off the field with the stents held in place. The lighted portion of the stents were then placed within each plastic sheath. A Simmons was placed under sterile conditions and the stents secured to the Simmons. At this point in the procedure I left the operating room to allow Dr. Hall to finish the operation, please see her operative dictation report . Findings: Right and left ureteral openings. Anesthesia: GETA Surgeon: Mallory Spence MD Estimated blood loss (mL): 0 Condition: stable Disposition: no change Date of procedure: 04/14/23
--- NOTE | 2023-04-14 10:51 | SUR.OPER ---
MD REQUESTED THIS PROGRAM ARRANGER TO WEIGH THE UTERUS. UTERUS WEIGHT IS 263 GRAMS. MD NOTIFIED OF FINDINGS.
--- NOTE | 2023-04-14 12:17 | W.ANESCHARGE ---
Anesthesia Charges Start Date/Time Anesthesia Start Date: 04/14/23 Anesthesia Start Time: 07:40 Stop Date/Time Anesthesia Stop Date: 04/14/23 Anesthesia Stop Time: 12:15
[2023-04-14] MEDS: fentaNYL 100 MCG/2 ML inj 50 MCG IVP ×2 (12:22→12:27)
[2023-04-14] MEDS: ONDANSETRON 2 MG/ML inj 4 MG IVP (12:29)
[2023-04-14] MEDS: MEPERIDINE 25 MG/ML INJ 12.5 MG IVP (12:39)
[2023-04-14] MEDS: PHENYLEPHRINE 100 MCG/ML SYRINGE IVP ×4 (12:50→13:32)
[2023-04-14] MEDS: HYDROmorphone 0.5 mg/0.5 ml inj IVP ×3 (13:04→14:09)
[2023-04-14] MEDS: LACTATED RINGERS 1000 ML 1,000 ML 200 ML IV (13:07)
[2023-04-14] MEDS: MIDAZOLAM HCL 1 MG/ML inj IVP (13:16)
[2023-04-14] MEDS: ACETAMINOPHEN INJ 1,000 MG/100 ML VIAL 400 MG IVPB (13:16)
[2023-04-14] MEDS: PROCHLORPERAZINE 5 MG/ML VIAL IV (13:57)
[2023-04-14 15:16] LABS: Hemoglobin* 12.2 gm/dL (12.0-16.0)
--- NOTE | 2023-04-14 15:23 | P.IMCN_ITS ---
Date of Consult Patient: Sagr[place] Patient Consult date: 04/14/23 Requesting Physician: [facility] Primary Care Provider: Kamala Soto, DO Consult Narrative Reason for consult: Medical management of comorbidities Narrative: Monica Smith is a 52 year old female who presented to the hospital today for a diagnostic laparoscopy, in addition to total abdominal hysterectomy with BSO, cystoscopy, and placement of bilateral ureteral stents. [facility] and Dr. Spence general surgery for recurrent tubo-ovarian abscesses + endometriosis. EBL 380mL. No significant anesthetic or surgical complications during procedure. Postoperatively, she was found to have hypotension (per patient, this has happened in the past after anesthesia). Postoperative hemoglobin reassuring. PCP is Dr. Soto. Past medical history significant for: Anxiety, blt-[id number]-fuxokcmgu DM2 (last A1c 5.9), hypothyroidism, hyperlipidemia. No history of blood clots, has heterozygous factor 5 Leiden deficiency. Review of Systems Status of ROS: Reports: 10 or more systems reviewed and unremarkable except as noted in History and below Narrative: - no chest pain or dyspnea - mild discomfort over abdominal incision PFSH [facility] Medical History (Updated 04/14/23 @ 19:03 by Lanette Evans MD) Pneumonia ?J18.9 - Pneumonia, unspecified organism (ICD-10) Closed fracture of ankle (12/25/12) ?S82.899A - Other fracture of unspecified lower leg, initial encounter for closed fracture (ICD-10) Bacteremia ?R78.81 - Bacteremia (ICD-10) Factor 5 Leiden mutation, heterozygous ?D68.51 - Activated protein C resistance (ICD-10) Rosacea ?L71.9 - Rosacea, unspecified (ICD-10) Type 2 diabetes mellitus ?E11.9 - Type 2 diabetes mellitus without complications (ICD-10) Major depressive disorder ?F32.9 - Major depressive disorder, single episode, unspecified (ICD-10) Fibromyalgia ?M79.7 - Fibromyalgia (ICD-10) History of PID ?Z87.42 - Personal history of other diseases of the female genital tract (ICD-10) Hypothyroidism ?E03.9 - Hypothyroidism, unspecified (ICD-10) Hyperlipidemia ?E78.5 - Hyperlipidemia, unspecified (ICD-10) Surgical History (Updated 04/14/23 @ 19:02 by Lanette Evans MD) H/O: hysterectomy ?Z90.710 - Acquired absence of both cervix and uterus (ICD-10) S/P aspiration of abscess ?Z98.890 - Other specified postprocedural states (ICD-10) H/O dilation and curettage ?Z98.890 - Other specified postprocedural states (ICD-10) Previous section ?Z98.891 - History of uterine scar from previous surgery (ICD-10) Status post ORIF of fracture of ankle ?Z98.890 - Other specified postprocedural states (ICD-10) ?Z87.81 - Personal history of (healed) traumatic fracture (ICD-10) Family History (Updated 01/03/23 @ 17:00 by Landry Palafox) Mother Endometriosis Other Factor V Leiden mutation Social History Narrative: . Nonsmoker. Social alcohol. 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 What is your current living situation?: I presently have a place to live Problems where you live: no known problems Problems where you live details: n/a In the past 12 months, utilities in danger of being shut off: no In past 12 months, lack of transportation kept you from medical appts, meetings, work, or getting things needed for daily living: no In the past 12 mos, have been you worried that your food would run out before you had money to buy more?: never true In the past 12 mos, the food you bought just didn't last and you didn't have money to buy more?: never true Highest level of school completed/degree received: Bachelor's degree Smoking Status: Never smoker How often do you have a drink containing alcohol: monthly or less How many standard drinks containing alcohol do you have on a typical day: 3 or 4 AUDIT-C Alcohol total score: 2 Non-prescribed substance use: denies use Caffeine: Yes How often does anyone, including family, friends and others, physically hurt you : never How often does anyone, including family, friends and others, insult or talk down to you: never How often does anyone, including family, friends and others, threaten you with harm: never How often does anyone, including family, friends and others, scream or curse at you: never service: No Meds Home Medications and Allergies Home Medications Medication Instructions Recorded Confirmed Type buspirone 15 mg tablet 22.5 mg PO BID 11/22/22 04/14/23 History escitalopram oxalate 20 mg tablet 20 mg PO DAILY 11/22/22 04/14/23 History levothyroxine 88 mcg tablet 88 mcg PO DAILY 11/22/22 04/14/23 History metformin 500 mg tablet,extended 500 mg PO QPM 11/22/22 04/14/23 History release 24 hr pregabalin 150 mg capsule 150 mg PO BID 11/22/22 04/14/23 History rosuvastatin 5 mg tablet 5 mg PO HS 11/22/22 04/14/23 History melatonin 10 mg tablet 10 mg PO HS PRN 11/24/22 04/14/23 History minocycline 100 mg capsule 100 mg PO DAILY PRN 11/24/22 04/14/23 History multivitamin 1 tab PO DAILY 11/24/22 04/14/23 History Allergies Allergy/AdvReac Type Severity Reaction Status Date / Time codeine Allergy Verified 04/14/23 06:30 simvastatin Allergy Verified 04/14/23 06:30 Sulfa (Sulfonamide Allergy Verified 04/14/23 06:30 Antibiotics) Exam Narrative: Exam Narrative: GEN: Sleepy but answering questions appropriately, nontoxic HEENT: EOMIs bilaterally, no scleral icterus CV: RRR, soft systolic murmur without any concerning findings R: LCTA bilaterally without concerning wheezing, air movement is adequate Ab: Soft, no concerning findings over laparoscopic incisions, ABD covering Pfannenstiel incision Skin: No concerning skin lesions or rashes on exposed skin Neuro: Nonfocal Psych: Appropriate Const: Vital Signs, click to edit/add: Vital Signs - 24 hr 04/14/23 06:34 04/14/23 12:10 04/14/23 12:15 Temperature 97.9 F 97.3 F L Pulse Rate 111 H 90 91 Pulse Rate [Pulse Oximeter] Respiratory Rate 16 14 16 Blood Pressure 119/83 110/69 98/61 Blood Pressure [Ri ght Arm] Pulse Oximetry 92 94 99 Oxygen Delivery Me thod Room Air Room Air OxyMask Oxygen Flow Rate 10 04/14/23 12:20 04/14/23 12:25 04/14/23 12:30 Temperature 97.3 F L Pulse Rate 92 79 80 Pulse Rate [Pulse Oximeter] Respiratory Rate 14 14 12 Blood Pressure 87/51 L 75/62 L 95/56 L Blood Pressure [Ri ght Arm] Pulse Oximetry 95 96 95 Oxygen Delivery Me thod OxyMask OxyMask Oxygen Flow Rate 10 10 04/14/23 12:35 04/14/23 12:40 04/14/23 12:45 Temperature 97.3 F L Pulse Rate 85 87 81 Pulse Rate [Pulse Oximeter] Respiratory Rate 12 14 12 Blood Pressure 93/55 L 80/58 L 82/62 L Blood Pressure [Ri ght Arm] Pulse Oximetry 96 95 94 Oxygen Delivery Me thod OxyMask OxyMask OxyMask Oxygen Flow Rate 10 10 10 04/14/23 12:50 04/14/23 12:55 04/14/23 13:00 Temperature 97.1 F L Pulse Rate 86 103 H 98 Pulse Rate [Pulse Oximeter] Respiratory Rate 14 12 14 Blood Pressure 93/65 126/70 106/70 Blood Pressure [Ri ght Arm] Pulse Oximetry 95 96 94 Oxygen Delivery Me thod OxyMask OxyMask OxyMask Oxygen Flow Rate 10 10 10 04/14/23 13:05 04/14/23 13:10 04/14/23 13:15 Temperature 97.1 F L Pulse Rate 101 H 117 H 101 H Pulse Rate [Pulse Oximeter] Respiratory Rate 14 12 12 Blood Pressure 92/61 104/62 86/51 L Blood Pressure [Ri ght Arm] Pulse Oximetry 94 94 93 Oxygen Delivery Me thod OxyMask OxyMask OxyMask Oxygen Flow Rate 10 10 10 04/14/23 13:20 04/14/23 13:25 04/14/23 13:30 Temperature 97.1 F L Pulse Rate 86 86 87 Pulse Rate [Pulse Oximeter] Respiratory Rate 12 12 12 Blood Pressure 97/61 71/49 L 89/59 L Blood Pressure [Ri ght Arm] Pulse Oximetry 94 94 96 Oxygen Delivery Me thod OxyMask OxyMask OxyMask Oxygen Flow Rate 10 10 10 04/14/23 13:35 04/14/23 13:40 04/14/23 13:45 Temperature 97.3 F L 97.2 F L Pulse Rate 89 100 102 H Pulse Rate [Pulse Oximeter] Respiratory Rate 14 14 16 Blood Pressure 92/68 94/54 L 107/64 Blood Pressure [Ri ght Arm] Pulse Oximetry 94 96 94 Oxygen Delivery Me thod OxyMask OxyMask OxyMask Oxygen Flow Rate 10 10 10 04/14/23 13:50 04/14/23 13:55 04/14/23 14:00 Temperature 97.2 F L Pulse Rate 101 H 98 102 H Pulse Rate [Pulse Oximeter] Respiratory Rate 12 12 14 Blood Pressure 103/61 111/61 129/92 H Blood Pressure [Ri ght Arm] Pulse Oximetry 94 96 94 Oxygen Delivery Me thod OxyMask OxyMask OxyMask Oxygen Flow Rate 10 10 10 04/14/23 14:05 04/14/23 14:10 04/14/23 14:15 Temperature 97.2 F L Pulse Rate 101 H 96 95 Pulse Rate [Pulse Oximeter] Respiratory Rate 12 12 14 Blood Pressure 99/54 L 100/52 L 95/63 Blood Pressure [Ri ght Arm] Pulse Oximetry 95 94 Oxygen Delivery Me thod OxyMask OxyMask OxyMask Oxygen Flow Rate 10 10 10 04/14/23 14:20 04/14/23 14:25 04/14/23 14:30 Temperature 97.2 F L 97.4 F L Pulse Rate 95 96 96 Pulse Rate [Pulse Oximeter] Respiratory Rate 12 12 14 Blood Pressure 102/66 114/61 112/61 Blood Pressure [Ri ght Arm] Pulse Oximetry 96 97 95 Oxygen Delivery Me thod OxyMask OxyMask OxyMask Oxygen Flow Rate 10 10 10 04/14/23 14:40 04/14/23 15:00 04/14/23 15:17 Temperature 96.8 F L 96.8 F L 96.9 F L Pulse Rate Pulse Rate [Pulse Oximeter] 92 97 97 Respiratory Rate 12 12 12 Blood Pressure Blood Pressure [Ri ght Arm] 84/68 L 111/56 L 109/59 L Pulse Oximetry 96 96 Oxygen Delivery Me thod Aerosol Mask OxyMask OxyMask Oxygen Flow Rate 10 10 Labs Labs: Short CBC 04/14/23 04/14/23 Range/Units 06:40 15:08 Hgb 13.9 12.2 (12.0-16.0) gm/dL BMP 04/14/23 06:40 Creatinine 0.9 Assessment and Plan Assessment and plan (1) H/O: hysterectomy: Problem comment: - 04/14/23, Dr. Hall Status: Acute (2) Factor 5 Leiden mutation, heterozygous: Problem comment: - No history of blood clots. Family members with history of blood clots - SCDs, Teds, and early ambulation Status: Acute (3) Type 2 diabetes mellitus: Problem comment: - last A1c < 6, on oral metformin as monotherapy - Accu-Cheks Status: Acute (4) Major depressive disorder: Problem comment: - continue home meds Status: Acute (5) Fibromyalgia: Problem comment: - continue home meds Status: Acute Plan - Per above - hospitalist team happy to follow patient during stay, given comorbidities above
[2023-04-14 15:28] LABS: Chloride* 98 mmol/L (96-114); Potassium* 3.9 mmol/L (3.6-5.1); Sodium* 137 mmol/L (135-149)
[2023-04-14] MEDS: LACTATED RINGERS 1000 ML 1,000 ML 125 ML IV ×2 (15:30→20:43)
[2023-04-14 15:31] LABS: Anion Gap 14 mEq/L (7-15); Blood Urea Nitrogen* 19 mg/dL (7-30); Carbon Dioxide* 25 mmol/L (20-32); Creatinine* 0.8 mg/dL (0.5-1.5); Est. Creatinine Clearance* 67.27; Estimated Glomerular Filt Rate 88 ml/min
[2023-04-14 15:32] LABS: Calcium* 8.2 mg/dL (8.4-10.6); Glucose* 156 mg/dL (60-115)
--- NOTE | 2023-04-14 16:10 | P.GSOP_ITS ---
Operative Note Pre-op diagnosis: Partial-thickness injury to sigmoid colon Post-op diagnosis: Same Type of Procedure: Primary repair of colonic partial-thickness injury Indications: I was asked for an intraoperative consultation by Dr. Hall. Please see her operative note regarding the procedure. Concern was for a cautery injury to the sigmoid colon that occurred during the procedure. Please see below for evaluation and intervention. Procedure Description: When he came into the operating room Dr. Hall and Dr. Smyth had converted to an open procedure. On examination there was a partial thickness cautery injury on the anterior aspect of the sigmoid colon just adjacent to the tinea. No full- thickness injury, enterotomy or contamination of succus was identified. The decision was made to over-sew the area of injury with 2 interrupted 0 Silk Lembert stitches. No other areas of injury were identified. Repair did not narrow the colonic opening. No other injuries were identified and I left the operating room for Dr. Hall and Dr. Smyth to finish the case. Findings: Partial-thickness cautery injury to sigmoid colon. Anesthesia: GETA Surgeon: Mallory Spence MD Estimated blood loss (mL): 0 Condition: stable Disposition: no change Date of procedure: 04/14/23
--- NOTE | 2023-04-14 16:58 | W.PM.GYNPROC ---
Procedure Note Date of procedure: 04/14/23 Pre-op diagnosis: Recurrent right tubo-ovarian abscess Post-op diagnosis: other (Recurrent right tubo-ovarian abscess. Endometriosis. Pelvic adhesions.) Procedure: Diagnostic laparoscopy Total abdominal hysterectomy with bilateral salpingo-oophorectomy Cystoscopy Placement of bilateral ureteral stents and over-sewing of thermal injury to sigmoid serosa by Dr. Mallory Spence Anesthesia: GETA Complications: Superficial injury to sigmoid serosa with monopolar cautery, managed by Dr. Spence with two interrupted silk sutures Surgeon: Britta Hall MD University Librarian: Carlotta Smyth Estimated blood loss (mL): 385 IV fluids (mL): 2,400 Pathology: specimen obtained, sent to pathology (A. Uterus, cervix, left tube and ovary. B. Right ovary. Specimens reviewed and confirmed in postoperative debrief. ) Condition: stable Disposition: floor Findings: 1. Upon cystoscopy, bladder mucosa was normal before and after hysterectomy. Bladder dome was intact after hysterectomy. There were bilateral ureteral jets noted at completion of procedure. 2. Upon bimanual exam under anesthesia, the uterus was mobile and slightly anteverted. There were no palpable adnexal masses. 3. Upon laparoscopy, survey of upper abdomen revealed a normal appearance to the inferior edge of the liver and stomach. Survey of the pelvis revealed a normal appearance to the anterior uterine serosa and bladder reflection. There was a uterine fibroid near the right fundus, which distorted the anatomy. There were dense and filmy adhesions surrounding bilateral ovaries, and the posterior cul-de-sac was obliterated with adhesion. There was a chocolate cyst encased in adhesions along the right lateral uterus. Procedure Description: Insert beginning laparoscopy Patient was taken to the operating room with IV running. She was positioned in dorsal lithotomy position with her legs fully supported in Yellofin stirrups. General anesthesia was administered. She was prepped and draped in the usual sterile fashion. Bimanual exam was performed for the above-noted findings. At initiation of procedure, bilateral ureteral stents were placed. Please refer to Dr. Spence's note for full detail. Pelvic exam under anesthesia was performed for the above-noted findings. Speculum was inserted. Cervix visualized and grasped along its anterior lip with a single-tooth tenaculum. Cervix was dilated with Hegar dilators to accommodate the SEAT 4aare uterine manipulator. Cervical stenosis was noted, and dilation was difficult. A small-sized colpotomizer cup was selected. The tip of the uterine manipulator was inserted through the cervix into the uterine cavity and the balloon was inflated. The speculum was removed. The colpotomy cup was advanced, surrounding the cervix, and the proximal occluder was moved up along the shaft of the VCare and fixed in place. Simmons catheter was placed. Patient's legs were then placed in neutral position. Attention was turned to patient's abdomen. Infraumbilical area was infiltrated with a small amount of Marcaine. An 11 mm infraumbilical incision was made with a scalpel and carried down to the underlying layer of fascia with the hemostat. The fascia was grasped with Len clamps and elevated, and was then incised with a scalpel, entering the peritoneal cavity. Mejia port was advanced through this opening into the peritoneal cavity and the balloon tip was inflated, holding it in place. Insufflator was attached and pneumoperitoneum achieved. Survey of the abdomen and pelvis revealed the above-noted findings. It was noted during this time that the VCare manipulator was not advanced to the fundus, and was near 2 perforating the left aspect of the uterus. Patient's legs were placed back in lithotomy position and this manipulator was readjusted with laparoscopic guidance. Two additional 5 mm port sites were required to fully examine the pelvis. The first was in the patient's left lower quadrant, just superomedial to the left ASIS. The second was in the patient's right lower quadrant, just superomedial to the right ASIS. A 5 mm incision was made at each site, after assuring that large vessels were out of harm's way. A 5 mm Fios Kii port was inserted at each of the sites, under direct visualization and without complication. The balloon on each of the ports was inflated, holding each in place. With the help of additional laparoscopic instruments, the posterior aspect of the uterus was examined to the fullest extent, and decision was made to convert to abdominal approach given the complexity and density of adhesions. The balloon tips of each port were deflated and all ports were removed. This skin of the right and left lower quadrant port sites was closed with a subcuticular stitch of 4-0 Monocryl. Of Pfannenstiel incision was made with a scalpel and carried down to the underlying layer of fascia. The subcutaneous fat was moved fully away from the fascia. Fascia was incised with a scalpel and incision was carried laterally with scissors. Len clamps were used to elevate the fascia and dissected off the underlying rectus. Peritoneum was entered bluntly. Patient was placed in slight Trendelenburg position, and the bowel was packed into the upper abdomen with dampened bowel pack. Landry over retractor was inserted and tightened down, providing visualization of the pelvis. The posterior uterus was palpated down to below the colpotomizer cup. It had been obliterated with scar, and abundant fatty tissue was noted in this area. There was no clear surgical plane, but the sigmoid was visually intact into the right of the gentle blunt dissection. The left round ligament was clamped, cut, suture ligated and tagged for later identification. The broad ligament was thus opened. The bladder reflection was dissected downwards, moving from the left to midline, using Bovie electrocautery. The right round ligament was similarly clamped, cut, suture ligated and tagged for later identification. The bladder reflection was dissected along the patient's right side, moving laterally to medially, meeting the dissection started previously. The bladder reflection was moved well below the palpable colpotomizer cup. The left uterine arteries were clamped, cut, and suture ligated with 0 Vicryl. The right uterine artery was clamped with LigaSure Impact device, coagulated, and transected. The filmy adhesions of the left adnexa were addressed with a combination of gentle blunt dissection and Bovie electrocautery. The left infundibulopelvic ligament was isolated in this way. It was then clamped, cut, and suture ligated. The right ovary was densely adherent to the pelvic sidewall and intimately attached to the right ureter. The right tube was freed of adhesions with gentle blunt dissection and was clamped with LigaSure Impact, cauterized, and transected. There were some oozing vessels around the dissection of the right ovary that were addressed with plsmbq-uj-xtozh sutures of 2 0 Vicryl. The anterior colpotomy was made with Bovie electrocautery using the colpotomizer cup as a guide. Colpotomy was carried laterally with Bovie, and then the lateral aspects of the vaginal cuff were entered after clamping, cutting and suture ligation with 0 Vicryl. The posterior cuff was also entered with Bovie, using the colpotomy cup as a guide. In this way, the cervix was detached from the vagina, and the specimen was sent to pathology. The uterine manipulator was removed from the patient's vagina. The posterior vaginal cuff was bleeding freely, and the tissue surrounding this was thickened and without clearly identifiable posterior peritoneum. The posterior vaginal cuff was oversewn with a whipstitch 0 Vicryl. The vaginal cuff was then approximated with a series of oegetk-kq-wytow sutures of 0 Vicryl. The remaining right ovary was then addressed. The identifiable cortex was grasped with Allis clamps. The adhesions of the ovary to the pelvic sidewall were gently dissected away from the ureter using blunt dissection. In this way, the infundibulopelvic ligament was isolated. The infundibulopelvic ligament was crossclamped and suture ligated a total of 3 times, with hemostasis noted. The remaining filmy adhesions of the ovary to the pelvic sidewall were addressed with a combination of gentle blunt dissection and Bovie. During the process, the anterior sigmoid colon suffered a very superficial burn with the Bovie. Dr. Spence was again called to the operating room, and this was addressed with 2 interrupted sutures of silk. See her operative report for full detail. The pelvis was copiously irrigated. Hemostasis was noted. Martha hemostatic agent was placed in the raw areas of the obliterated cul-de-sac, along the vaginal cuff, and along the area of dissection around the right ovary. Bowel packing was removed. The retractor was removed. The fascia of the umbilical port site was closed from with in the abdomen using a limbqw-il-ubezt suture of 0 Vicryl. The fascia of the Pfannenstiel incision was reapproximated with 0 looped PDS in a running fashion. The subcutaneous fat was irrigated and Bovie used on bleeding vessels. The subcutaneous fat was reapproximated with interrupted sutures of 2-0 plain gut. The skin was reapproximated in a subcuticular fashion with 4-0 Monocryl, as was the skin of the umbilical port site. Surgical glue was applied above all incisions. Patient's legs were placed back in lithotomy position. The ureteral stents were removed and noted to be intact. Cystoscopy was performed, again showing bilateral ureteral jets. The Simmons catheter was replaced. Vaginal exam revealed a normal vaginal length and an intact cuff. Patient tolerated procedure well and was taken to recovery area in stable condition.
[2023-04-14] MEDS: METFORMIN ER 500 MG PO (18:05)
[2023-04-14] MEDS: KETOROLAC 30 MG/ML inj IVP ×2 (18:11→23:47)
--- NOTE | 2023-04-14 19:50 | PC.NURSE ---
Pt arrived to med/surg from PACU at 1440- noted to be hypotensive and on 10 liters of oxygen upon arrival. PACU nurse reported patient had complaints of pain and nausea post-op and was given several medications to treat. B/P of 84/68 noted upon arrival to med/surg unit. MD Evans updated. B/P has since improved to 100/61. Patient's oxygen has been weaned down to 1 LPM with O2 sat of 92% per NC. Patient is more alert and able to eat supper. She has been denying nausea when asked, able to wiggle toes and make needs known since becoming more alert. Urine output of 850 mL. Bowel sounds active x 4 and LS clear to all lobes bilaterally. Dressing to abdomen noted to be clean, dry and intact upon inspection. Pt's pain has been controlled with rest, repositioning and scheduled Toradol. SCDs worn to bilateral lower extremities. Abdominal pain noted to be 4/10 before giving scheduled Toradol with 2/10 noted upon followup. Pt aware that goal is for her to sit at edge of bed dangling lower extremities this evening. Pt noted to be alert & oriented x 4. Blood glucose of 156 before supper with scheduled Metformin administered.
[2023-04-14] MEDS: BUSPIRONE 10 MG TABLET 22.5 MG PO (20:40)
[2023-04-14] MEDS: PREGABALIN 75 MG CAPSULE 150 MG PO (20:40)
[2023-04-14] MEDS: ROSUVASTATIN CALCIUM 10 MG TABLET 5 MG PO (20:42)
[2023-04-14] MEDS: OXYCODONE 5 MG TABLET PO (20:43)
[2023-04-14] MEDS: ENOXAPARIN 40 MG/0.4 ML INJ SUBCUT (20:43)
[2023-04-15] VITALS (9 sets, daily range): BP systolic 93–137; BP diastolic 50–64; PULSE 65–89; RESP 16–18; TEMP 36.2–37.1; O2SAT 88–95
[2023-04-15] MEDS: LACTATED RINGERS 1000 ML 1,000 ML 125 ML IV (05:36)
[2023-04-15] MEDS: LEVOTHYROXINE 88 MCG TABLET PO (06:10)
[2023-04-15] MEDS: KETOROLAC 30 MG/ML inj IVP ×3 (06:10→17:41)
[2023-04-15 06:32] LABS: Hemoglobin* 10.9 gm/dL (12.0-16.0)
[2023-04-15 06:47] LABS: Creatinine* 0.8 mg/dL (0.5-1.5); Est. Creatinine Clearance* 67.27; Estimated Glomerular Filt Rate 88 ml/min
--- NOTE | 2023-04-15 06:59 | PC.NURSE ---
19-: pleasant and cooperative. Rating pain 4-6/10 in abd, 5mg oxy given & active ice applied - pt stated her pain has been tolerable. Pt also c/o back pain ? aqua K pad applied, offered relief. Pt on 1-3L O2 throughout the night, pt O2 desat into the 70s, placed pt on 3L and worked on deep breathing exercises, was able to titrate to 1.5L shortly thereafter. Heart Nurse asked pt if she has ever had a sleep study done, she stated that the study was negative for sleep apnea. Dressing to lower abd CDI. Pt c/o lightheadedness when sitting at edge of bed, was able to dangle feet for a few minutes and the lightheadedness subsided.
--- NOTE | 2023-04-15 08:27 | P.GYNPN_ITS ---
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 Hall. Total abdominal hysterectomy with bilateral salpingo- oophorectomy, complicated by serosal burn sigmoid colon Status: Acute Assessment and Plan: Appropriate postoperative course. Voiding trial later today. Ambulation today. She has mild anemia on labs today. I will not start iron at this time, but will repeat hemoglobin tomorrow. (2) Factor 5 Leiden mutation, heterozygous: Problem details: - No history of blood clots. Family members with history of blood clots - SCDs, Teds, and early ambulation Status: Acute Assessment and Plan: Continue Lovenox nightly until discharge. (3) Type 2 diabetes mellitus: Problem details: - last A1c < 6, on oral metformin as monotherapy - Accu-Cheks Status: Acute Assessment and Plan: Appreciate management recommendations by hospitalist service. Maintained on metformin. (4) Major depressive disorder: Problem details: - continue home meds Status: Acute (5) Fibromyalgia: Problem details: - continue home meds Status: Acute Postoperative Procedures: Procedures Operation Date: 04/14/23 07:15 Actual Procedure Side Surgeon p Attempted total Laparoscopic Hysterectomy, Total Abdominal Hysterectomy, Bilateral Salpingo-Oophorectomy, Cystoscopy Not Applicable Britta Hall MD s Lighted Ureteral Stent Placement Bilateral Mallory Spence MD Postoperative status: doing well Postoperative plan: routine post-op care Time Spent With Patient Time: Total time spent is greater than 50% in coordination of care (as documented) at patient's floor/unit and/or counseling patient: Time with patient: less than 15 minutes INSTRUCTIONAL TECHNOLOGY TEACHER- PN:Subj Post-Op Subjective Date Seen: 04/15/23 Post Operative Details: Post-operative day number 1: status post placement of ureteral stents, cystoscopy, diagnostic laparoscopy, total abdominal hysterectomy with bilateral salpingo-oophorectomy for indication of recurrent right tubo-ovarian abscesses. Endometriosis diagnosed intraoperatively. Monica had difficulty sleeping last night. Otherwise, she has no complaints. Pain is well controlled. She tolerated oral oxycodone last night. She has tolerated regular diet and is passing gas. She has had no bowel movement. She sat on the side of her bed last night, but has not walked yet. Simmons catheter is in place. INSTRUCTIONAL TECHNOLOGY TEACHER-PN: Obj Exam Physical Exam: Vital signs: Temp Pulse Resp BP Pulse Ox O2 Del Method O2 Flow Rate 97.3 F L 81 16 112/50 L 88 Nasal Cannula 1 04/15/23 02:45 04/15/23 02:45 04/15/23 02:45 04/15/23 02:45 04/15/23 02:45 04/15/23 02:45 04/15/23 02:45 Narrative: General: Pleasant, no acute distress Heart: Regular rate and rhythm, no murmur or gallop Lungs: Clear to auscultation bilaterally Abdomen: Normoactive bowel sounds in all 4 quadrants, soft, nontender, laparoscopic incisions and dressing were Pfannenstiel incision clean, dry, and intact Lower extremities: No edema or erythema Urinary Catheter Management: Urethral: Cath placed during this visit: no INSTRUCTIONAL TECHNOLOGY TEACHER - PN: Obj Data Labs Labs: Laboratory Results - last 24 hr 04/14/23 04/14/23 04/15/23 06:40 15:08 05:55 Hgb 12.2 10.9 L Sodium 137 Potassium 3.9 Chloride 98 Carbon Dioxide 25 Anion Gap 14 BUN 19 Creatinine 0.8 0.8 Estimated Creat Clear 67.27 67.27 Estimated GFR 88 88 Glucose 156 H Calcium 8.2 L Blood Type O Positive Antibody Screen NEGATIVE
[2023-04-15] MEDS: BUSPIRONE 10 MG TABLET 20 MG PO ×2 (09:35→20:32)
[2023-04-15] MEDS: MULTIVITAMIN/MINERALS 1 TABLET 1 TAB PO (09:35)
[2023-04-15] MEDS: ESCITALOPRAM 10 MG TABLET 20 MG PO (09:35)
[2023-04-15] MEDS: PREGABALIN 75 MG CAPSULE 150 MG PO ×2 (09:39→21:03)
--- NOTE | 2023-04-15 10:23 | P.GSPN_ITS ---
Subjective Subjective Date Seen: 04/15/23 Interval history: Patient is doing well this morning. Does feel a little dizzy when getting up and walking around. Abdominal pain is being managed with pain medications. Has been passing gas and tolerating some po intake. Passing gas. No nausea or vomiting. Has voided this morning, denies any blood in urine. Exam Narrative: Exam Narrative: Gen: alert and oriented, NAD Abd: soft, appropriately tender over incision site. No guarding or rebound. Const: Vital Signs, click to edit/add: Vital Signs - 24 hr 04/14/23 12:10 04/14/23 12:15 04/14/23 12:20 Temperature 97.3 F L Pulse Rate 90 91 92 Pulse Rate [Pulse Oximeter] Respiratory Rate 14 16 14 Blood Pressure 110/69 98/61 87/51 L Blood Pressure [Ri ght Arm] Pulse Oximetry 94 99 95 Oxygen Delivery Me thod Room Air OxyMask Oxygen Flow Rate 10 04/14/23 12:25 04/14/23 12:30 04/14/23 12:35 Temperature 97.3 F L Pulse Rate 79 80 85 Pulse Rate [Pulse Oximeter] Respiratory Rate 14 12 12 Blood Pressure 75/62 L 95/56 L 93/55 L Blood Pressure [Ri ght Arm] Pulse Oximetry 96 95 96 Oxygen Delivery Me thod OxyMask OxyMask OxyMask Oxygen Flow Rate 10 10 10 04/14/23 12:40 04/14/23 12:45 04/14/23 12:50 Temperature 97.3 F L Pulse Rate 87 81 86 Pulse Rate [Pulse Oximeter] Respiratory Rate 14 12 14 Blood Pressure 80/58 L 82/62 L 93/65 Blood Pressure [Ri ght Arm] Pulse Oximetry 95 94 95 Oxygen Delivery Me thod OxyMask OxyMask OxyMask Oxygen Flow Rate 10 10 10 04/14/23 12:55 04/14/23 13:00 04/14/23 13:05 Temperature 97.1 F L Pulse Rate 103 H 98 101 H Pulse Rate [Pulse Oximeter] Respiratory Rate 12 14 14 Blood Pressure 126/70 106/70 92/61 Blood Pressure [Ri ght Arm] Pulse Oximetry 96 94 94 Oxygen Delivery Me thod OxyMask OxyMask OxyMask Oxygen Flow Rate 10 10 10 04/14/23 13:10 04/14/23 13:15 04/14/23 13:20 Temperature 97.1 F L Pulse Rate 117 H 101 H 86 Pulse Rate [Pulse Oximeter] Respiratory Rate 12 12 12 Blood Pressure 104/62 86/51 L 97/61 Blood Pressure [Ri ght Arm] Pulse Oximetry 94 93 94 Oxygen Delivery Me thod OxyMask OxyMask OxyMask Oxygen Flow Rate 10 10 10 04/14/23 13:25 04/14/23 13:30 04/14/23 13:35 Temperature 97.1 F L 97.3 F L Pulse Rate 86 87 89 Pulse Rate [Pulse Oximeter] Respiratory Rate 12 12 14 Blood Pressure 71/49 L 89/59 L 92/68 Blood Pressure [Ri ght Arm] Pulse Oximetry 94 96 94 Oxygen Delivery Me thod OxyMask OxyMask OxyMask Oxygen Flow Rate 10 10 10 04/14/23 13:40 04/14/23 13:45 04/14/23 13:50 Temperature 97.2 F L Pulse Rate 100 102 H 101 H Pulse Rate [Pulse Oximeter] Respiratory Rate 14 16 12 Blood Pressure 94/54 L 107/64 103/61 Blood Pressure [Ri ght Arm] Pulse Oximetry 96 94 94 Oxygen Delivery Me thod OxyMask OxyMask OxyMask Oxygen Flow Rate 10 10 10 04/14/23 13:55 04/14/23 14:00 04/14/23 14:05 Temperature 97.2 F L Pulse Rate 98 102 H 101 H Pulse Rate [Pulse Oximeter] Respiratory Rate 12 14 12 Blood Pressure 111/61 129/92 H 99/54 L Blood Pressure [Ri ght Arm] Pulse Oximetry 96 94 Oxygen Delivery Me thod OxyMask OxyMask OxyMask Oxygen Flow Rate 10 10 10 04/14/23 14:10 04/14/23 14:15 04/14/23 14:20 Temperature 97.2 F L Pulse Rate 96 95 95 Pulse Rate [Pulse Oximeter] Respiratory Rate 12 14 12 Blood Pressure 100/52 L 95/63 102/66 Blood Pressure [Ri ght Arm] Pulse Oximetry 95 94 96 Oxygen Delivery Me thod OxyMask OxyMask OxyMask Oxygen Flow Rate 10 10 10 04/14/23 14:25 04/14/23 14:30 04/14/23 14:40 Temperature 97.2 F L 97.4 F L 96.8 F L Pulse Rate 96 96 Pulse Rate [Pulse Oximeter] 92 Respiratory Rate 12 14 12 Blood Pressure 114/61 112/61 Blood Pressure [Ri t Arm] 84/68 L Pulse Oximetry 97 95 Oxygen Delivery Me thod OxyMask OxyMask Aerosol Mask Oxygen Flow Rate 10 10 04/14/23 15:00 04/14/23 15:00 04/14/23 15:17 Temperature 96.8 F L 96.9 F L Pulse Rate Pulse Rate [Pulse Oximeter] 97 97 Respiratory Rate 12 12 12 Blood Pressure Blood Pressure [Ri ght Arm] 111/56 L 109/59 L Pulse Oximetry 96 96 Oxygen Delivery Me thod OxyMask OxyMask Oxygen Flow Rate 10 10 04/14/23 15:30 04/14/23 15:45 04/14/23 15:45 Temperature 96.8 F L 96.9 F L 97.4 F L Pulse Rate Pulse Rate [Pulse Oximeter] 93 94 95 Respiratory Rate 12 12 12 Blood Pressure Blood Pressure [[facility]] 114/59 L 103/60 103/60 Pulse Oximetry 95 96 94 Oxygen Delivery Me thod OxyMask OxyMask OxyMask Oxygen Flow Rate 10 10 10 04/14/23 16:15 04/14/23 16:15 04/14/23 16:45 Temperature 96.9 F L 96.9 F L 97.4 F L Pulse Rate Pulse Rate [Pulse Oximeter] 95 95 86 Respiratory Rate 12 12 12 Blood Pressure Blood Pressure [[facility]] 101/59 L 101/59 L 106/51 L Pulse Oximetry 97 97 94 Oxygen Delivery Me thod OxyMask OxyMask Room Air OxyMask Oxygen Flow Rate 10 10 8 04/14/23 17:45 04/14/23 18:47 04/14/23 20:00 Temperature 98.2 F 97.8 F 97 F L Pulse Rate Pulse Rate [Pulse Oximeter] 94 98 83 Respiratory Rate 16 16 14 Blood Pressure Blood Pressure [[facility]] 104/83 100/61 108/58 L Pulse Oximetry 96 92 92 Oxygen Delivery Me thod OxyMask Nasal Cannula Nasal Cannula Oxygen Flow Rate 6 1 1 04/14/23 23:00 04/14/23 23:30 04/15/23 02:45 Temperature 97.5 F L 97.3 F L Pulse Rate Pulse Rate [Pulse Oximeter] 84 84 81 Respiratory Rate 16 16 16 Blood Pressure Blood Pressure [Ri ght Arm] 107/61 112/50 L Pulse Oximetry 95 88 Oxygen Delivery Me thod Nasal Cannula Nasal Cannula Oxygen Flow Rate 1 1 Progress Note: A&P Assessment and plan (1) H/O: hysterectomy: Problem details: - 04/14/23, Dr. Hall. Total abdominal hysterectomy with bilateral salpingo- oophorectomy, complicated by serosal burn sigmoid colon Status: Acute Assessment and Plan: Patient is postop day 1 total abdominal hysterectomy with BSO. I provided an intraoperative consultation for serosal burn to the sigmoid colon, which was repaired primarily and assisted with placement of bilateral ureteral stents. No concerns from a general surgery perspective. Okay to advance diet to a regular as tolerated. Other cares per gynecology service.
[2023-04-15] MEDS: OXYCODONE 5 MG TABLET PO (11:31)
[2023-04-15] MEDS: SIMETHICONE 80 MG TAB.CHEW 160 MG PO (11:36)
--- NOTE | 2023-04-15 11:50 | P.EN_ITS ---
Chart Event Note Date Seen: 04/15/23 Chart Event Note: Stopped by to see the patient POD#1 this morning. Doing very well. Tolerating orals without nausea vomiting. Pain adequately managed. Has no concerns or questions. Chronic medical comorbidities appear to be well managed. Hospital Medicine will sign off, available for questions or concerns should they arise. ANNELISE Carballo, PA-C [facility]
--- NOTE | 2023-04-15 17:19 | PC.NURSE ---
End of Shift: Patient is A&O... VS on RA for most of the day except for when she was dozing off in bed... per Dr Hall orders to titrate NC 1-4L >90%, with sleep due to desaturation... this AM she went into the low 80's. Initially the patient was dizzy this morning when sitting at the edge of the bed.. BP check was WNL no orthostasis. Simmons was in until late morning.... a voiding trial was completed after removal and she passed with no issues. Midline lower abdominal incision covered with Mepilex... CDI with no drainage. Lower lap sites with dried blood and steri strips intact. She reports mild 4/10 pain when engaging abdominal muscles to sit up.. oxy given 1x with adequate relief of a 2/10 pain. 1 loose soft BM today. She went on multiple walks throughout the day around the unit.. no longer dizzy when up. R hand IV is Saline locked per orders. Ice pack to abdomen throughout the day.. BLE calf SCDs on throughout the day.. patient is most comfortable resting in bed due to chronic low back pain.. aqua K pad on throughout the day for relief. Up ad jean as tolerated.
[2023-04-15] MEDS: METFORMIN ER 500 MG PO (17:42)
[2023-04-15] MEDS: ROSUVASTATIN CALCIUM 10 MG TABLET 5 MG PO (20:32)
[2023-04-15] MEDS: ENOXAPARIN 40 MG/0.4 ML INJ SUBCUT (20:32)
[2023-04-16] MEDS: OXYCODONE 5 MG TABLET PO ×2 (00:06→08:31)
[2023-04-16] MEDS: IBUPROFEN 600 MG TABLET PO ×2 (02:37→08:30)
[2023-04-16 03:00] VITALS: BP 122/61; PULSE 84; RESP 18; TEMP 37.2; O2SAT 94
--- NOTE | 2023-04-16 05:20 | PC.NURSE ---
END OF SHIFT NOTE: PT PLEASANT AND COOPERATIVE. A&Ox3. PT DENIES CP, SOB, N/V. AMBULATES INDEPENDENTLY. VSS ON RA; AFEBRILE. PT RATES LOWER ABDOMINAL (INCISIONAL) PAIN 3-6/10 WITH SOME RELIEF PRN AND SCHEDULED PAIN RELIEVER, ICE AND SPLINTING. PT PASSING FLATUS.?CALL LIGHT WITHIN PT?S REACH.?
[2023-04-16] MEDS: LEVOTHYROXINE 88 MCG TABLET PO (06:15)
[2023-04-16 07:30] LABS: Hemoglobin* 9.2 gm/dL (12.0-16.0)
[2023-04-16 08:22] LABS: Alanine Aminotransferase* 89 U/L (4-35); Aspartate Amino Transferase* 108 U/L (12-35); Bilirubin Total* 1.3 mg/dL (0.1-1.5)
[2023-04-16 08:30] VITALS: BP 113/57; PULSE 72; RESP 16; TEMP 36.1; O2SAT 94
[2023-04-16] MEDS: MULTIVITAMIN/MINERALS 1 TABLET 1 TAB PO (08:30)
[2023-04-16] MEDS: ESCITALOPRAM 10 MG TABLET 20 MG PO (08:32)
[2023-04-16] MEDS: BUSPIRONE 10 MG TABLET 20 MG PO (08:32)
[2023-04-16] MEDS: PREGABALIN 75 MG CAPSULE 150 MG PO (09:58)
--- NOTE | 2023-04-16 11:09 | PM.GYNDS1 ---
DS: Providers Provider Time Seen by Provider: 08:00 Date Seen: 04/16/23 Date of admission: 04/15/23 04:21 Primary care physician: Kamala Soto DO Admitting Clinician: Britta Hall MD Consults: 04/14/23 16:21 Consult to Physician [CONS] Urgent Comment: Consulting Provider: Hospitalists Has provider been notified: Yes Attending Physician on discharge: Britta Hall MD DS: Diagnosis Discharge Diagnosis (1) Anemia: Status: Acute (2) Alcohol use disorder: Status: Acute (3) Menopausal symptoms: Status: Acute (4) H/O: hysterectomy: Status: Acute Problem details: - 04/14/23, Dr. Hall. 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 S/p CT guided drainage of abscesses each time, one sterile and one growing GBS. (6) Transaminitis: Status: Acute Problem details: Right upper quadrant ultrasound ordered, trend (7) Factor 5 Leiden mutation, heterozygous: Status: Acute Problem details: - No history of blood clots. Family members with history of blood clots - SCDs, Teds, and early ambulation (8) Type 2 diabetes mellitus: Status: Acute Problem details: - last A1c < 6, on oral metformin as monotherapy - Accu-Cheks (9) Major depressive disorder: Status: Acute Problem details: - continue home meds (10) Fibromyalgia: Status: Acute Problem details: - continue home meds (11) History of PID: Status: Acute Problem details: Approximately 2017 REFUND CLERK-Discharge Summary Hospital Course Hospital Course Narrative: Monica is a 52 year old admitted on 04/14/2023 for schedule hysterectomy and bilateral salpingo-oophorectomy. Indication for surgery: Recurrent tubal ovarian abscesses. Intraoperative findings were notable for: 1. Upon cystoscopy, bladder mucosa was normal before and after hysterectomy. Bladder dome was intact after hysterectomy. There were bilateral ureteral jets noted at completion of procedure. 2. Upon bimanual exam under anesthesia, the uterus was mobile and slightly anteverted. There were no palpable adnexal masses. 3. Upon laparoscopy, survey of upper abdomen revealed a normal appearance to the inferior edge of the liver and stomach. Survey of the pelvis revealed a normal appearance to the anterior uterine serosa and bladder reflection. There was a uterine fibroid near the right fundus, which distorted the anatomy. There were dense and filmy adhesions surrounding bilateral ovaries, and the posterior cul-de-sac was obliterated with adhesion. There was a chocolate cyst encased in adhesions along the right lateral uterus. Her final surgical procedures: 1. Diagnostic laparoscopy 2. Total abdominal hysterectomy with bilateral salpingo-oophorectomy 3. Cystoscopy with placement and removal of ureteral stents. 4. Oversewing of thermal injury sigmoid serosa by general surgery. Postoperative course has been overall uneventful. Hospitalist consult was placed due to her multiple comorbidities and intermittent desaturations to the 80s while sleeping (likely related to sleep apnea). Other, vitals have been stable. She has remained afebrile. She passed flatus and had normal BM x 2. She reports maybe scant vaginal bleeding but not enough to even take notice. Today, on postoperative day 2, her pain is well controlled on oral pain medications. She endorses more soreness with increased activity. I reassured patient that is expected and encouraged proactive management of pain with not only medications but supportive measures such as heating pack/belly band etc. She has been able to ambulate without difficulty. She is tolerating regular diet. Simmons catheter has been removed, and she is voiding without difficulty. She has been using the incentive spirometer as instructed. Yesterday she discussed vasomotor postmenopausal symptoms with Dr. Hall. The plan was for her to start fezolinetant (Veozah) given her relative contraindications to estrogen. Baseline LTFs lab was obtained and showed transaminitis (AST 108 and ALT 89). Unfortunately, this is a contraindication to using Veozah as ALT and AST levels increased 3 times the upper limit of normal in 2.3% of women using this medication in clinical trials. She had a slight transaminitis on 11/24/2022 (AST 51 and ALT 53). I expressed my concerns at the worsening liver enzymes. She's never had a work up for this. She has never been diagnosed with any kind of hepatites, no history of ICP in any of her pregnancies. She denied non-sterile tattooing or IVDU. She does not use Tylenol excessively to manage her fibromyalgia. I asked about excessive alcohol use and she became very tearful at this. She does identify her alcohol use as problematic but reported feeling too ashamed to talk to anyone about this. Monica expressed fear of having a label of being an alcoholic. She drinks 2+ shots of vodka 5-7 times per week. Reports that it helps her with major depressive disorder/ anxiety and trauma around being bullied at work. It has gotten to the point where she relies on alcohol to feel relatively normal. She does feel she needs to cut back but is very honest by admitting she wouldn't be able to do it without help. She desires alcohol cessation for a while now and making preparations to change. She is planning on seeing a mental healthcare provider that specializes in trauma. Hopefully, with better management of her depression/anxiety and trauma, she won't be as reliant on alcohol use. Monica has great insights into her condition and needs. I reassured her that she's made great strides just by being able to acknowledge a problem and seek help. Pamphlets and resources on alcohol cessation was provided to her. I do recommend she make a short interval follow up with her PCP for a full workup of the transaminitis. I do not see that she had hepatitis screening documented in [facility]. While I suspect her abnormal LFTs are related to alcohol use disorder, we want to make sure there is nothing else going on. She is amenable to this plan. Time Spent with Patient Time attestation: Total time spent providing and/or coordinating discharge services: Time spent: Greater than 30 minutes REFUND CLERK - Exam Physical Exam: Vital signs: Temp Pulse Resp BP Pulse Ox O2 Del Method O2 Flow Rate 97.0 F L 72 16 113/57 L 94 Room Air 1 04/16/23 08:30 04/16/23 08:30 04/16/23 08:30 04/16/23 08:30 04/16/23 08:30 04/16/23 08:30 04/15/23 18:10 Narrative: Physical exam: General: No acute distress. Comfortable in bed. Psych: Alert and oriented x3, full affect HEENT: Normocephalic, atraumatic, oropharynx benign Neck: No cervical adenopathy, no thyromegaly Heart: Regular rate and rhythm, no murmur rub or gallop Lungs: Clear to auscultation bilaterally Abdomen: Normoactive bowel sounds, soft, no rebound, or guarding, no masses. Appropriately tender to palpation. Incision: Slight bruising around Pfannenstiel incision. Otherwise all incisions (3 port sites and Pfannenstiel) clean dry, and intact. No erythema, induration, or abnormal discharge. Skin: No lesions or rashes Lower extremities: No edema or erythema. SCDs in place and functioning Pelvic exam: Deferred. REFUND CLERK - DS: Data Data Completed and Pending Labs on day of discharge: Labs from last 24 hours 04/16/23 06:02 Hgb 9.2 L Total Bilirubin 1.3 AST 108 H ALT 89 H Procedures Procedures: Procedures Operation Date: 04/14/23 07:15 Actual Procedure Side Surgeon p Attempted total Laparoscopic Hysterectomy, Total Abdominal Hysterectomy, Bilateral Salpingo-Oophorectomy, Cystoscopy Not Applicable Britta Hall MD s Lighted Ureteral Stent Placement Bilateral Mallory Spence MD Discharge Plan Discharge Disposition: Home, Self-Care Date of Admission: 04/15/23 04:21 Attending Provider on Discharge: Carlotta Smyth Consulting Providers: Lanette Evans; Mallory Spence Primary Care Provider: Kamala Soto Condition: Stable Anticipated Discharge Date/Time: 04/16/23 14:01 Discharge Medications: New ibuprofen 600 mg Tablet 600 mg PO Q6H Qty: 30 0RF oxycodone 5 mg Tablet 5 mg PO Q4H PRN (Reason: Moderate Pain) Qty: 25 0RF ferrous sulfate 325 mg (65 mg iron) tablet 325 mg PO Q OTHER DAY Qty: 30 0RF Continued rosuvastatin 5 mg tablet 5 mg PO HS buspirone 15 mg tablet 22.5 mg PO BID levothyroxine 88 mcg tablet 88 mcg PO DAILY metformin 500 mg tablet extended release 24 hr 500 mg PO QPM escitalopram oxalate 20 mg tablet 20 mg PO DAILY pregabalin 150 mg capsule 150 mg PO BID melatonin 10 mg tablet 10 mg PO HS PRN minocycline 100 mg capsule 100 mg PO DAILY PRN multivitamin Tablet 1 tab PO DAILY Discharge Orders: Discharge Order (Routine); Ordered 04/16/23 Ordered By: Carlotta Smyth Patient Education: Iron Supplements (By mouth), Ibuprofen (By mouth), Oxycodone, Rapid Release (By mouth), Hysterectomy (DC) Activity Detail: No lifting greater than 20 lbs for 6 weeks. Do not submerge incision under water for 2 weeks. Nothing per vagina for [address] while taking narcotic pain medications. Discharge Diet: Diabetic Follow Up Appointments: Kamala Soto DO [Primary Care Provider] - Britta Hall MD [Staff Physician] - Forms: [employer] Info Instructions
--- NOTE | 2023-04-16 14:36 | PC.NURSE ---
Discharge note: The patient was discharged home with her @12[address] Dr Smyth's request the patient was provided resources for alcohol abuse recovery... I printed off many resources for her and she was open to them all. She was additionally educated regarding incisional care.. not to soak it, no hard scrubbing and or peeling off the steri strips.. and she was educated to avoid anything vaginally for 6 weeks. Her appointment with DR Hall was scheduled prior to admission.. she confirmed this. Patient is tolerating walks and reported mil 3/10 pain after administration of IBU and oxy this AM. All belongings were sent home with the patient. Farnaz MOREAU RN
== END 2023-04-16 12:40 | disposition home or self-care (01) | DRG 742 ==
LOC: MEDSURG 14:06 → OR 04-25 09:38
PROVIDERS: Family Medicine; Surgery; Admitting Provider Obstetrics & Gynecology; PCP Family Medicine; Visit Provider Obstetrics & Gynecology
PROC: 0UT94ZZ Resection of Uterus, Percutaneous Endoscopic Approach (ICD-10-PCS; principal; 2023-04-14 07:15)
PROC: 0T788DZ Dilation of Bilateral Ureters with Intraluminal Device, Via Natural or Artificial Opening Endoscopic (ICD-10-PCS; 2023-04-14 07:15)
DX: N70.03 Acute salpingitis and oophoritis (principal); D62 Acute posthemorrhagic anemia; D68.51 Activated protein C resistance; K91.72 Accidental puncture and laceration of a digestive system organ or structure during other procedure; G89.18 Other acute postprocedural pain; F10.20 Alcohol dependence, uncomplicated; R42 Dizziness and giddiness; N73.6 Female pelvic peritoneal adhesions (postinfective); N95.1 Menopausal and female climacteric states; Z53.31 Laparoscopic surgical procedure converted to open procedure; I95.81 Postprocedural hypotension; D25.1 Intramural leiomyoma of uterus; N80.203 Endometriosis of bilateral fallopian tubes, unspecified depth; N80.103 Endometriosis of bilateral ovaries, unspecified depth; N84.0 Polyp of corpus uteri; M79.7 Fibromyalgia; F41.9 Anxiety disorder, unspecified; E11.9 Type 2 diabetes mellitus without complications; E03.9 Hypothyroidism, unspecified; F32.9 Major depressive disorder, single episode, unspecified; L71.9 Rosacea, unspecified
CPT/HCPCS: 00840; 36415; 64488; 76942; 80048; 81025; 82247; 82565; 82962; 84450; 84460; 85018; 86850; 86900; 86901; 88307; 99211; A9153; A9270; C1769; J0131; J0330; J0665; J0690; J0780; J1100; J1170; J1200; J1650; J1885; J1940; J2175; J2250; J2371; J2405; J2704; J3010; J3475; J3490; J7120